=== PATIENT | male | born 1935 | race Caucasian/White ===

== ENCOUNTER 2016-09-19 20:08 | Inpatient (IN) | payer MEDICARE, BC ==
[~2016-09-19] VITALS: Ht 177.8 cm; Wt 70.6 kg
[~2016-09-19 20:08] MED LIST: BAYER CHEWABLE81 MG PO; COMBIVENT RESPIM4 GM INH; COREG6.25 MG PO; EC-NAPROSYN500 MG PO; LEVAQUIN500 MG PO; NORVASC10 MG PO; PRAVACHOL40 MG PO; PRINIVIL20 MG PO; SYMBICORT 80-10.2 GM INH; WELLBUTRIN SR150 MG PO
[2016-09-19 21:08] LABS: BASOPHILS 0.1 % (0-2); EOSINOPHILS 0.1 % (0-7); HEMATOCRIT 43.6 % (42.0-54.0); HEMOGLOBIN 14.2 g/dL (13.5-17.5); IMMATURE GRANULOCYTES 0.6 % (0-5); LYMPHOCYTES 2.6 % (15-50); MCH 31.3 pg (26.0-34.0); MCHC 32.6 g/dL (31.0-37.0); MEAN PLATELET VOLUME 11.5 fL (7.4-10.4); MONOCYTES 4.4 % (2-11); NEUTROPHILS 92.2 % (40-80); RBC 4.54 10x6/uL (4.20-6.10); RDW 13.8 % (11.5-14.5); WBC 14.9 10x3/uL (4.8-10.8)
[2016-09-19 21:09] LABS: PLATELET COUNT 168 10x3/uL (130-400)
[2016-09-19 21:23] LABS: ALBUMIN 3.3 g/dL (3.4-5.0); ANION GAP 11.9 mmol/L (8-16); BILIRUBIN - TOTAL 0.83 mg/dL (0.2-1.3); CARBON DIOXIDE 27.4 mmol/L (21.0-32.0); CREATININE - SERUM 1.3 mg/dL (0.6-1.3); POTASSIUM - SERUM 4.3 mmol/L (3.5-5.1); PROTEIN - SERUM 6.7 g/dL (6.4-8.2)
[2016-09-19 21:31] LABS: MAGNESIUM - SERUM 1.8 mg/dL (1.8-2.4); TROPONIN-I 0.049 ng/mL (0.000-0.060)
[2016-09-20] VITALS (7 sets, daily range): BP systolic 103–136; BP diastolic 53–75; Ht 177.8 cm; Wt 70.6 kg
[2016-09-20 14:44] LABS: CKMB 1.8 U/L (0.0-3.6); CREATINE KINASE 95 UL (21-232); TROPONIN-I 0.045 ng/mL (0.000-0.060)
[2016-09-20 19:25] LABS: CKMB 1.7 U/L (0.0-3.6); CREATINE KINASE 102 UL (21-232); TROPONIN-I 0.044 ng/mL (0.000-0.060)
[2016-09-21] VITALS: BP 114/62
[2016-09-21 02:50] LABS: BASOPHILS 0.1 % (0-2); EOSINOPHILS 0.8 % (0-7); HEMATOCRIT 37.4 % (42.0-54.0); HEMOGLOBIN 12.3 g/dL (13.5-17.5); IMMATURE GRANULOCYTES 0.4 % (0-5); LYMPHOCYTES 8.6 % (15-50); MCH 30.9 pg (26.0-34.0); MCHC 32.9 g/dL (31.0-37.0); MEAN PLATELET VOLUME 11.5 fL (7.4-10.4); MONOCYTES 4.6 % (2-11); NEUTROPHILS 85.5 % (40-80); RBC 3.98 10x6/uL (4.20-6.10); RDW 13.8 % (11.5-14.5); WBC 12.6 10x3/uL (4.8-10.8)
[2016-09-21 02:53] LABS: PLATELET COUNT 130 10x3/uL (130-400)
[2016-09-21 03:11] LABS: ALBUMIN 2.5 g/dL (3.4-5.0); ALKALINE PHOSPHATASE 81 U/L (46-116); ALT (SGPT) 10 U/L (10-68); CALC OSMOLALITY 275 mosm/kg (275-300); CALCIUM 8.3 mg/dL (8.5-10.1); CARBON DIOXIDE 27.5 mmol/L (21.0-32.0); CHLORIDE - SERUM 102 mmol/L (98-107); CREATINE KINASE 85 UL (21-232); CREATININE - SERUM 1.3 mg/dL (0.6-1.3); GLUCOSE 111 mg/dL (74-106); MAGNESIUM - SERUM 1.7 mg/dL (1.8-2.4); PHOSPHOROUS 2.5 mg/dL (2.5-4.9); POTASSIUM - SERUM 4.2 mmol/L (3.5-5.1); PROTEIN - SERUM 5.7 g/dL (6.4-8.2); SODIUM 135 mmol/L (136-145); TROPONIN-I 0.031 ng/mL (0.000-0.060); UREA NITROGEN 27 mg/dL (7-18); eGFR NON AFRICAN AMERICAN 56 mL/min (90-120)
[2016-09-21 04:00] VITALS: BP 120/56
[2016-09-21 08:04] VITALS: BP 113/60
[2016-09-21 12:00] VITALS: BP 125/59
[2016-09-21 16:00] VITALS: BP 130/67
[2016-09-21 20:00] VITALS: BP 127/60
[2016-09-22 02:00] VITALS: BP 139/67
[2016-09-22 04:00] VITALS: BP 138/69
[2016-09-22 06:30] LABS: HEMATOCRIT 36.8 % (42.0-54.0); HEMOGLOBIN 12.6 g/dL (13.5-17.5); LYMPHOCYTES 9.7 % (15-50); MCH 32.1 pg (26.0-34.0); MCHC 34.2 g/dL (31.0-37.0); MCV 93.9 fL (80.0-100.0); MEAN PLATELET VOLUME 11.7 fL (7.4-10.4); NEUTROPHILS 85.2 % (40-80); PLATELET COUNT 128 10x3/uL (130-400); RBC 3.92 10x6/uL (4.20-6.10); RDW 13.9 % (11.5-14.5)
[2016-09-22 06:41] LABS: ALBUMIN 2.5 g/dL (3.4-5.0); BILIRUBIN - TOTAL 0.48 mg/dL (0.2-1.3); CALCIUM 8.8 mg/dL (8.5-10.1); CARBON DIOXIDE 30.3 mmol/L (21.0-32.0); CREATININE - SERUM 1.2 mg/dL (0.6-1.3); MAGNESIUM - SERUM 1.9 mg/dL (1.8-2.4); PHOSPHOROUS 2.5 mg/dL (2.5-4.9); POTASSIUM - SERUM 4.3 mmol/L (3.5-5.1); PRE-ALBUMIN 12.8 mg/dL (18.0-35.7); PROTEIN - SERUM 6.2 g/dL (6.4-8.2)
[2016-09-22 08:19] VITALS: BP 118/52
[2016-09-22 11:31] VITALS: BP 116/62
[2016-09-22 15:12] VITALS: BP 114/62
[2016-09-23] VITALS: BP 120/64
[2016-09-23 04:00] VITALS: BP 145/70
[2016-09-23 05:47] LABS: BASOPHILS 0 % (0-2); EOSINOPHILS 0 % (0-7); HEMATOCRIT 37.4 % (42.0-54.0); HEMOGLOBIN 12.4 g/dL (13.5-17.5); IMMATURE GRANULOCYTES 0.3 % (0-5); LYMPHOCYTES 5.4 % (15-50); MCH 31.2 pg (26.0-34.0); MCHC 33.2 g/dL (31.0-37.0); MEAN PLATELET VOLUME 11.8 fL (7.4-10.4); NEUTROPHILS 90.3 % (40-80); RBC 3.98 10x6/uL (4.20-6.10); RDW 13.5 % (11.5-14.5); WBC 8.9 10x3/uL (4.8-10.8)
[2016-09-23 05:49] LABS: PLATELET COUNT 168 10x3/uL (130-400)
[2016-09-23 06:09] LABS: ALBUMIN 2.5 g/dL (3.4-5.0); ALKALINE PHOSPHATASE 83 U/L (46-116); CALC OSMOLALITY 278 mosm/kg (275-300); CALCIUM 9.1 mg/dL (8.5-10.1); CARBON DIOXIDE 28.4 mmol/L (21.0-32.0); CHLORIDE - SERUM 103 mmol/L (98-107); GLUCOSE 142 mg/dL (74-106); PROTEIN - SERUM 6.2 g/dL (6.4-8.2); SODIUM 137 mmol/L (136-145); UREA NITROGEN 20 mg/dL (7-18); eGFR NON AFRICAN AMERICAN 76 mL/min (90-120)
[2016-09-23 06:10] LABS: ALT (SGPT) 21 U/L (10-68); POTASSIUM - SERUM 5.2 mmol/L (3.5-5.1)
[2016-09-23 07:55] VITALS: BP 150/77
[2016-09-23] MEDS ORDERED: SINGULAIR10 MG PO (12:49)
[2016-09-23 12:50] VITALS: BP 133/63
[2016-09-23] MEDS ORDERED: BENZONATATE200 MG PO (12:50)
[2016-09-23] MEDS ORDERED: MUCINEX DM ER1 EAC1 PO (12:50)
[2016-09-23] MEDS ORDERED: VIBRAMYCIN 100100 MG PO (12:51)
[2016-09-23] MEDS ORDERED: PREDNISONE10 MG PO (12:51)
[2016-09-24 07:52] LABS: IMMUNOGLOBULIN E 587 IU/mL (0-100)
[2016-09-24 11:17] LABS: IMMUNOGLOBULIN A 223 mg/dL (61-437); IMMUNOGLOBULIN G 609 mg/dL (700-1600)
[2016-09-24 18:09] LABS: AEROBE ID Preliminary report (()); RESULT 1 Gram positive cocci (())
== END 2016-09-23 14:11 | disposition home or self-care (01) | DRG 190 ==
LOC: D.ER 20:08 → D.M2 21:47
PROVIDERS: Emergency Medicine; Internal Medicine Pulmonary Disease; ADMIT Emergency Medicine
DX: J44.0 Chronic obstructive pulmonary disease with (acute) lower respiratory infection (principal); J15.6 Pneumonia due to other Gram-negative bacteria; J13 Pneumonia due to Streptococcus pneumoniae; J98.11 Atelectasis; E44.0 Moderate protein-calorie malnutrition; F17.203 Nicotine dependence unspecified, with withdrawal; J70.0 Acute pulmonary manifestations due to radiation; J44.1 Chronic obstructive pulmonary disease with (acute) exacerbation; Z85.118 Personal history of other malignant neoplasm of bronchus and lung; I11.0 Hypertensive heart disease with heart failure; I50.9 Heart failure, unspecified; E78.5 Hyperlipidemia, unspecified; K21.9 Gastro-esophageal reflux disease without esophagitis; J30.9 Allergic rhinitis, unspecified; D64.9 Anemia, unspecified; D69.6 Thrombocytopenia, unspecified; E83.42 Hypomagnesemia

== ENCOUNTER 2016-09-30 20:37 | Inpatient (IN) | payer MEDICARE, BC ==
[~2016-09-30] VITALS: Ht 177.8 cm; Wt 81.4 kg
--- NOTE | ~2016-09-30 | OP ---
PATIENT NAME: GUNJAN DUVALL MEDICAL RECORD: [id number] :37 LOCATION:D.M2 D.2103 ADMISSION DATE:09/30/16 SURGEON: SADE MELARA MD OPERATION DATE: 09/30/16 DATE OF OPERATION: 10/04/2016 PROCEDURES: 1. Left heart catheterization. 2. Selective coronary angiography. 3. Left ventriculogram. INDICATION: Cardiomyopathy. PROCEDURE IN DETAIL: After informed consent was obtained and after detailed explanation of risks, benefits as well as alternative therapies, the patient elected to proceed with angiogram. The right femoral area was prepped and draped in normal sterile fashion. Right femoral artery was cannulated via modified Seldinger technique with placement of 5-Saudi Arabian sheath. All catheters exchanged through this sheath. FINDINGS: Left ventriculogram was performed in standard 30-degree FAUST view, reveals inferior hypokinesis, ejection fraction in the 30% range. SELECTIVE CORONARY ANGIOGRAPHY: 1. Left main is with no significant angiographic disease. 2. Left anterior descending has no significant stenosis. 3. The left circumflex with no significant stenosis. 4. Right coronary is chronically totally occluded, fills via left to right collaterals. OVERALL IMPRESSION: Total occlusion of the right coronary artery, that is chronic, resultant ischemic cardiomyopathy, ejection fraction 30%. Continue medical management of the cardiomyopathy and coronary artery disease. TRANSINT:[id number] Voice Confirmation ID: [id number] DOCUMENT ID: [id number] SADE MELARA MD CC: [id number] DICTATION DATE: 10/04/16 1030 SPINNING MACHINE TENDER: 10/04/16 1104 ADM IN [id number] [place] [address]
--- NOTE | ~2016-09-30 | EC ---
PATIENT:GUNJAN DUVALL DATE OF SERVICE: 10/02/16 SEX: M MEDICAL RECORD: [id number] DATE OF : 37 LOCATION:D.M2 D.210 AGE OF PATIENT: 81 ADMISSION DATE: 09/30/16 REFERRING PHYSICIAN: INTERPRETING PHYSICIAN: SADE MORGAN MD ECHOCARDIOGRAM REPORT ECHO CHARGES 4 ECHO COMPLETE CLINICAL DIAGNOSIS: A-FIB ECHOCARDIOGRAPHIC MEASUREMENTS (adult normal given) AC root (d.<3.7cm) 3.6 cm LV Septum d (<1.2 cm> 1.4 cm Valve Excursion 2.3 cm LV Septum (systole) 1.7 cm Left Atria (s.<4.0cm> 3.9 cm LVPW d(<1.2cm) 1.4 cm RV (d.<2.3cm) 1.8 cm LVPW (sytole) 1.8 cm LV diastole(<5.6CM) 5.6 cm MV E-F(>70mm/sec) cm LV systole 4.3 cm LVOT Diameter 2.0 cm MV exc.(>10mm) cm Est.ejection fraction (50-75%) % Pericardial Effusion N DOPPLER: LVIT cm/sec A cm/sec E 96.0 cm/sec LA cm/sec RVSP 42.0 mmHg LVOT 80.0 cm/sec AOP1/2T m/s Asc. Ao 113 cm/sec RVOT 98.0 cm/sec RA cm/sec PA 103 cm/sec AV Gradient Peak 5.1 mmHg AV Mean 2.3 mmHg AV Area 2.5 cm MV Gradient Peak 5.1 mmHg MV Mean 1.9 mmHg MV Area cm COMMENTS: Equal Opportunity Specialist: 1 JACQUI FREEBURN Erisa Attorney: 1 Dr. Morgan TAPE# PACS TWO-DIMENSIONAL ECHOCARDIOGRAM WITH DOPPLER 1. Left ventricular chamber size is dilated. Left ventricular systolic function is markedly reduced. Overall ejection fraction is 25-30 percent. 2. Left atrium is within normal limits at 3.9 centimeters. Right atrium and right ventricular chamber sizes are moderately dilated. 3. Valvular structures have normal structure and motion. 4. Doppler interrogation reveals mild to moderate mitral regurgitation, mild tricuspid regurgitation; no other valvular insufficiency or stenosis. Pulmonary artery systolic pressure is elevated estimated at 42 millimeters of mercury. ECHOCARDIOGRAM REPORT [id number] GUNJAN DUVALL 5. No evidence of pericardial effusion or left ventricular thrombus. SADE MORGAN MD CC: [id number] DICTATION DATE: 10/02/16 1500 TRADE SALES ASSISTANT: SHANTANU 10/03/16 1355 ADM IN [facility] [address] [id number]
--- NOTE | ~2016-09-30 | HEMODYNAMI ---
PATIENT:GUNJAN DUVALL MEDICAL RECORD: [id number] : 37 LOCATION:[facility] D.2103 ADMISSION DATE: 09/30/16 Generatedon:10/04/201610:34 Patient name: GUNJAN DUVALL Patient #: [id number] SSN: : 1935 Date of study: 10/04/2016 Page: Of Hemodynamic Procedure Report Patient Data Patient Demographics Procedure consent was obtained First Name: GUNJAN Gender: Male Last Name: ELOINA : 1935 Patient #: [id number] Age: 81 year(s) Race: Unknown Additional ID: [id number] Contact details [address]: [address] [place] [address] State: [place] City: [place] Zip code: [address] Admission Admission Data Admission Date: 09/30/2016 Admission Time: 22:44 Room #: D.2103 Procedure Procedure Types Cath Procedure Diagnostic Procedure LHC LHC w/Coronaries Miscellaneous Procedures Moderate Sedation up to 15 minutes Peripheral Cath Diagnostic Procedure Cath Peripheral Four Vessel Arteriogram Procedure Description Procedure Date Procedure Date: 10/04/2016 Procedure Start Time: 10:15 Procedure Staff Name Function Rich Morgan MD Performing Physician Cullen Barajas RT Scrub Delbert Dhillon RN Nurse Landon Shelton RT Monitor Procedure Data Cath Procedure Fluoroscopy Diagnostic fluoroscopy Total fluoroscopy Time: 4.4 time: 4.4 min min Diagnostic fluoroscopy Total fluoroscopy dose: dose: 245.73 mGy 245.73 mGy Contrast Material Contrast Material Type Amount (ml) Isovue 300 174 Entry Location Entry Primary Successful Side Size Upsize Upsize Entry Closure Succes sful Closure Location (Fr) 1 (Fr) 2 (Fr) Remarks Device Remarks Femoral Right 5 Fr Exoseal artery Diagnostic catheters Device Type Used For End Catheter Placement Cordis 5Fr Pigtail LV Angiography Catheter (MP) Cordis 5Fr JL 4.0 Left Coronary Catheter (MP) Angiography Cordis 5Fr 3DRC Catheter Right Coronary (MP) Angiography Cordis 4Fr JB3 catheter Cervical carotid (common) arteriography Procedure Medications Medication Administration Route Dosage Oxygen NC 2 l/min Heparin Flush Bag added to field 2 bags (1000units/500ml NS) 0.9% NaCl I.V. 100 ml/hr Lidocaine 2% added to field 20 Versed I.V. 1 mg Fentanyl I.V. 50 mcg Versed I.V. 1 mg Fentanyl I.V. 50 mcg Versed I.V. 0.5 mg Fentanyl I.V. 50 mcg Hemodynamics Rest Heart Rate: 70 (bpm) Snapshots Pre Cath Intra NCS Post Cath Vital Signs Time Heart Resp SPO2 NIBP (mmHg) Rhythm Pain Sedation Rate (ipm) (%) Status Level (bpm) 9:30:29 62 23 97 176/86(137) NSR 0 (11) 10(A) , No pain 9:34:53 71 24 98 170/92(128) NSR 0 (11) 10(A) , No pain 9:40:01 71 26 98 165/75(130) NSR 0 (11) 10(A) , No pain 9:45:02 59 19 98 154/83(131) NSR 0 (11) 10(A) , No pain 9:49:22 69 17 95 162/84(129) NSR 0 (11) 10(A) , No pain 9:53:46 70 19 97 158/81(124) NSR 0 (11) 10(A) , No pain 9:58:08 82 20 97 156/78(119) NSR 0 (11) 10(A) , No pain 10:02:31 60 16 96 133/66(118) NSR 0 (11) 10(A) , No pain 10:06:47 64 18 96 135/74(114) NSR 0 (11) 10(A) , No pain 10:11:05 61 17 94 138/71(106) NSR 0 (11) 10(A) , No pain 10:15:23 60 22 96 139/75(119) NSR 0 (11) 9(A) , No pain 10:19:43 62 15 96 137/72(115) NSR 0 (11) 9(A) , No pain 10:23:59 63 15 95 128/64(108) NSR 0 (11) 9(A) , No pain 10:28:13 63 16 96 136/74(107) NSR 0 (11) 10(A) , No pain 10:31:54 63 15 94 135/72(113) NSR 0 (11) 10(A) , No pain Medications Time Medication Route Dose Verified Delivered Reason Notes Effe ctiveness by by 9:27:12 Oxygen NC 2 Buffie Buffie Per l/min Jacquie Dhillon RN physician 9:27:22 Heparin Flush added 2 Buffie Buffie used for Bag to bags Jacquie RN Jacquie model artists' (1000units/500ml field NS) 9:27:33 0.9% NaCl I.V. 100 Buffie Buffie Per ml/hr Jacquie Dhillon RN physician 9:42:38 Lidocaine 2% added 20ml Buffie Rich for local to vial Jacquie Morgan MD anesthetic field 10:13:03 Versed I.V. 1 mg Buffie Buffie for Dhillon RN Jacquie RN sedation 10:13:09 Fentanyl I.V. 50 Buffie Buffie for mcg Dhillon RN Jacquie RN sedation 10:17:19 Versed I.V. 1 mg Buffie Buffie for Dhillon RN Jacquie RN sedation 10:17:24 Fentanyl I.V. 50 Buffie Buffie for mcg Dhillon RN Dhillon RN sedation 10:21:17 Versed I.V. 0.5 Buffie Buffie for mg Dhillon RN Dhillon RN sedation 10:21:21 Fentanyl I.V. 50 Buffie Buffie for mcg Dhillon RN Jacquie RN sedation Procedure Log Time Note 9:20:30 Landon Shelton RT (R) (CV) sent for patient. Start room use. 9:20:48 Time tracking: Regular hours 9:20:57 Plan of Care:Hemodynamics will remain stable., Cardiac rhythm will remain stable., Comfort level will be maintained., Respiratory function will remain adequate., Patient/ family verbilizes understanding of procedure., Procedure tolerated without complication., Recovers from procedure without complications.. 9:21:06 Patient received from PCU to CCL 3 Alert and oriented. Tansferred to table in Supine position. 9:21:09 Warm blankets applied, and erin hugger turned on for patient comfort. 9:21:09 Correct patient and procedure confirmed by team. 9:21:11 Signed procedure consent form obtained from patient. 9:21:12 ECG and BP/O2 sat monitors applied to patient. 9:21:13 Full Disclosure recording started 9:21:14 - 9:21:17 H&P Date Dictated: 10/04/2016 Within 30 days and on chart.. 9::17 Pre-procedure instructions explained to patient. ::18 Pre-op teaching completed and patient verbalized understanding. 9::19 Family in waiting room. 9::21 Patient NPO since Midnight. 9::23 Is the patient allergic to Iodine/contrast media? No. 9::25 Is patient on blood thinner?No 9::29 Patient diabetic? No. 9:21:31 - 9:21:31 ----Pre-sedation anethsthesia assessment.---- 9:21:35 Previous problem with sedation/anesthesia? No ? 9:21:36 Snore? Yes 9:21:37 Sleep apnea? No 9:21:39 Deviated septum? No 9:21:40 Opens mouth fully? Yes 9:21:41 Sticks out tongue? Yes 9:21:48 Airway obstruction? No ? 9:21:53 Dentures? Yes in 9:21:54 - 9:27:12 Oxygen 2 l/min NC was administered by Delbert Dhillon RN; Per physician; :27:22 Heparin Flush Bag (1000units/500ml NS) 2 bags added to field was administered by Buffie Dhillon RN; used for procedure; 9:27:33 0.9% NaCl 100 ml/hr I.V. was administered by Delbert Dhillon RN; Per physician; 9:29:13 Vital chart was started 9:31:47 Pre procedure: right dorsailis pedis pulse Doppler 9:31:50 Patient pain scale 0/10 no. 9:31:56 IV patent on arrival in right wrist with 0.9% NaCl at [facility]. 9:31:59 Sharps counted by scrub and verified by R.N. 9:32:00 Alarms reviewed by R. N. 9:32:04 Right groin area was prepped with chlora-prep and draped in sterile fashion 9:32:11 Use device set Femoral Dx 9:32:12 Acist Syringe opened to sterile field. 9:32:13 Bag Decanter opened to sterile field. 9:32:13 Medline Cath Pack opened to sterile field. 9:32:14 Terumo 5Fr Le Roy Sheath opened to sterile field. 9:32:15 St Shantanu 260cm J .035 wire opened to sterile field. 9:32:16 Acist Hand Control opened to sterile field. 9:32:16 Acist Manifold opened to sterile field. 9:32:17 Diagnostic Infinity 5Fr Multipack catheter opened to sterile field. 9:32:18 Tegaderm 4 x 4 opened to sterile field. 9:36:53 Baseline sample Acquired. 9:37:00 Rhythm: sinus rhythm 9:39:35 Zero performed for pressure channel P1 9:39:39 Zero performed for pressure channel P1 9:42:38 Lidocaine 2% 20ml vial added to field was administered by Rich Morgan MD; for local anesthetic; 10:11:52 Physician arrived 10:11:53 --------ALL STOP TIME OUT------ 10:12:14 Final Timeout: patient, procedure, and site verified with staff and physician. All members of the team are in agreement. 10:12:18 Right groin site verified by team. 10:12:22 Physical assessment completed. ASA score P 2 - A patient with mild systemic disease as per Rich Morgan MD. 10:12:26 Sedation plan: IV Moderate Sedation Versed, Fentanyl 10:13:03 Versed 1 mg I.V. was administered by Delbert Dhillon RN; for sedation; 10:13:09 Fentanyl 50 mcg I.V. was administered by Delbert Dhillon RN; for sedation; 10:15:22 Procedure started. 10:15:26 Local anesthetic to right femoral artery with Lidocaine 2% by Rich Morgan MD.INITIAL ACCESS ONLY 10:15:39 A 5 Fr sheath was inserted into the Right Femoral artery 10:17:19 Versed 1 mg I.V. was administered by Delbert Dhillon RN; for sedation; 10:17:24 Fentanyl 50 mcg I.V. was administered by Delbert Dhillon RN; for sedation; 10:17:42 A Cordis 5Fr Pigtail Catheter (MP) was advanced over the wire and used for LV Angiography. 10:17:48 LV angiography performed. 10:17:57 A Cordis 5Fr JL 4.0 Catheter (MP) was advanced over the wire and used for Left Coronary Angiography. 10:19:32 A Cordis 5Fr 3DRC Catheter (MP) was advanced over the wire and used for Right Coronary Angiography. 10:19:35 RCA angiography performed. 10:21:17 Versed 0.5 mg I.V. was administered by Delbert Dhillon RN; for sedation; 10:21:21 Fentanyl 50 mcg I.V. was administered by Delbert Dhillon RN; for sedation; 10:21:27 Rt and LT carotid angio performed 10:23:56 Terumo ANGLE 260cm glide wire opened to sterile field. 10:26:53 A Cordis 4Fr JB3 catheter was advanced over the wire and used for Cervical carotid (common) arteriography. 10:27:29 Sheath removed intact; hemostasis achieved with Exoseal to the Right Femoral artery. 10:27:38 Procedure ended.(Physican Out) 10:28:39 Cordis 5Fr Exoseal opened to sterile field. 10:28:46 Fluoroscopy time 04.40 minutes. 10::58 Fluoroscopy dose: 245.73 mGy 10::58 Flurop Dose total: 245.73 10:29:05 Contrast amount:Isovue 300 174ml. 10:29:07 Sharps counted by scrub and verified by R.N. 10:29:09 Insertion/operative site no bleeding no hematoma. 10:29:12 Post-op/insertion site Right Femoral artery dressed using a 4 x 4 and Tegaderm. 10:29:16 Post right femoral artery:stable 10:29:19 Post Procedure Pulses reassessed and unchanged 10:29:22 Post-procedure physical assessment completed. ASA score P 2 - A patient with mild systemic disease as per Rich Morgan MD. 10:29:24 Post procedure rhythm: unchanged. 10:29:25 Post procedure instruction explained to patient.Patient verbalizes understanding. 10:29:26 Procedure and supply charges have been captured, reviewed, submitted an d are correct. 10:29:59 Procedure type changed to Cath procedure, Diagnostic procedure, LHC, LH C w/Coronaries, Miscellaneous Procedures, Moderate Sedation up to 15 minutes, Peripheral Cath Diagnostic Procedure, Cath Peripheral, Four Vessel Arteriogram 10:33:18 Report given to Med II. 10:33:22 Patient transfered to Med II with Bed. 10:34:01 Vital chart was stopped Device Usage Item Name Manufacture Quantity Catalog Hospital Part Current Minimal Lo t# / Number Charge Number Stock Stock Serial# Code Acist Acist 1 [id number] [id number] 490340 485119 20 Syringe Medical Systems Inc Bag Microtek 1 2002S 755623 30999 629177 5 Decanter Medical Inc. Medline Cardinal 1 [id number] 928381 28538 008427 5 Cath Pack Health Terumo 5Fr Terumo 1 [id number] 799365 846974 896808 [address] St Shantanu 1 151255 640353 681778 929631 30 260cm J .035 wire Acist Hand Acist 1 46594 943876 389739 110575 5 Control Medical Systems Inc Acist Acist 1 82054 148215 119954 068080 5 Manifold Medical Systems Inc Diagnostic Cardinal 1 [id number] 147851 62509 120303 30 Infinity Health 5Fr Multipack catheter Tegaderm 4 3M 1 1626W 826249 207912 517912 5 x 4 Cordis 5Fr Cardinal 1 140622 5 Pigtail Health Catheter (MP) Cordis 5Fr Cardinal 1 256759 5 JL 4.0 Health Catheter (MP) Cordis 5Fr Cardinal 1 553355 5 3DRC Health Catheter (MP) Terumo Terumo 1 [id number] 897452 548023 116624 5 ANGLE 260cm glide wire Cordis 4Fr Cardinal 1 532-438 401089 964279 097132 5 JB3 Health catheter Cordis 5Fr Cardinal 1 EX500 815540 532264 855640 10 17 124354 [facility] Health Signature Audit Sparkill Stage Time Signature Unsigned Intra-Procedure 10/04/2016 Landon 10:33:54 AM Nikita RT (R) (CV) Signatures Monitor : Landon Signature : Nikita RT Date : Time : [id number] [place] [address]
--- NOTE | ~2016-09-30 | CN ---
PATIENT NAME:GUNJAN DUVALL MEDICAL RECORD: [id number] : 37 LOCATION:D. D.210 ADMIT DATE: 09/30/16 ACCOUNT: [id number] CONSULTING PHYSICIAN: SADE MELARA MD REFERRING PHYSICIAN: SCOTT RIGGS DO CARDIOLOGY CONSULT PROBLEM LIST: 1. Pneumonia. 2. Atrial fibrillation. 3. Valvular heart disease. 4. Chronic obstructive pulmonary disease. HISTORY OF PRESENT ILLNESS: This is a gentleman who was admitted with noncardiac reasons - pneumonia, shortness of breath, and was found to be in atrial fibrillation initially rapid ventricular response and started on a Cardizem drip. He is now in atrial flutter. Heart rate is in 70s. He is asymptomatic with this. He could not feel it even when he was tachycardic with it. He does not know of a history of tachyarrhythmias. He has been told in the past that he has aortic stenosis. This was a number of years ago. He has not had a reevaluation of his valvular heart disease since then. PHYSICAL EXAMINATION: HEAD, EYES, EARS, NOSE, AND THROAT: Benign. NECK: Supple. No jugular venous distention. Carotid upstroke plus two bilaterally without bruits. LUNGS: Overall clear to auscultation and percussion. HEART: Regular. Normal S1, normal S2. No S3, no S4. No murmurs. BONES, JOINTS, EXTREMITIES: No clubbing, cyanosis, or edema. OVERALL IMPRESSION: Atrial fibrillation, most likely reactionary to the chronic obstructive pulmonary disease and pneumonia. Will start him on sotalol 80 milligrams twice a day. Discontinue the Cardizem after the first dose of sotalol. Will plan for echocardiogram. Hopefully the sotalol and treatment of the pneumonia will restore sinus rhythm. SADE MELARA MD CC: [id number] DICTATION DATE: 10/01/16 1500 KNIT GOODS WASHER: SHANTANU 10/02/16 1416 ADM IN [facility] [address] [facility] [place] [address]
--- NOTE | ~2016-09-30 | OP ---
PATIENT NAME: GUNJAN DUVALL MEDICAL RECORD: [id number] :37 LOCATION:D.M2 D.2103 ADMISSION DATE:09/30/16 SURGEON: SADE MEALRA MD OPERATION DATE: 09/30/16 DATE OF OPERATION: 10/04/2016 PROCEDURES: Four-vessel carotid and vertebral angiography. INDICATION: Syncope and carotid vascular disease. PROCEDURE IN DETAIL: After informed consent was obtained and after detailed explanation of risks, benefits as well as alternative therapies, the patient elected to proceed with angiogram. The right femoral area had a preexisting sheath from coronary angiography, all catheters exchanged through this sheath. FINDINGS: There was a subselection of each subclavian as well as the left carotid. RIGHT SIDE: The common and external carotids are devoid of disease. The internal carotid has 60% stenosis after the bulb. The vertebral artery is widely patent. LEFT SYSTEM: The common and external carotids are widely patent. The internal carotid has an 80+ percent stenosis just after the bulb. The vertebral artery is devoid of disease. OVERALL IMPRESSION: Significant carotid disease, left greater than right. Evaluate for carotid endarterectomy in light of recurrent syncope. TRANSINT:[id number] Voice Confirmation ID: [id number] DOCUMENT ID: [id number] SADE MELARA MD CC: [id number] DICTATION DATE: 10/04/16 1031 SHEARING SHED WORKER: 10/04/16 1109 ADM [address] [place] [address]
[~2016-09-30 20:37] MED LIST changes: +BENZONATATE200 MG PO; +MUCINEX DM ER1 EAC1 PO; +PREDNISONE10 MG PO; +SINGULAIR10 MG PO; +VIBRAMYCIN 100100 MG PO
[2016-09-30 21:27] LABS: HEMATOCRIT 43.3 % (42.0-54.0); MCH 31.1 pg (26.0-34.0); MCHC 32.3 g/dL (31.0-37.0); MCV 96.2 fL (80.0-100.0); MEAN PLATELET VOLUME 11.1 fL (7.4-10.4); PLATELET COUNT 291 10x3/uL (130-400); RDW 14.5 % (11.5-14.5); WBC 23.3 10x3/uL (4.8-10.8)
[2016-09-30 21:43] LABS: ALBUMIN 3.1 g/dL (3.4-5.0); ANION GAP 13.2 mmol/L (8-16); BILIRUBIN - TOTAL 0.68 mg/dL (0.2-1.3); CALCIUM 8.6 mg/dL (8.5-10.1); CARBON DIOXIDE 28.2 mmol/L (21.0-32.0); CREATININE - SERUM 1.2 mg/dL (0.6-1.3); POTASSIUM - SERUM 4.4 mmol/L (3.5-5.1); PROTEIN - SERUM 6.6 g/dL (6.4-8.2)
[2016-09-30 22:02] LABS: MAGNESIUM - SERUM 1.8 mg/dL (1.8-2.4)
[2016-09-30 22:05] LABS: TROPONIN-I 0.184 ng/mL (0.000-0.060)
[2016-09-30 22:12] LABS: EOSINOPHILS 2 % (0-7); LYMPHOCYTES 6 % (15-50); MONOCYTES 5 % (2-11); NEUTROPHILS 87 % (40-80); PLATELET ESTIMATE NORMAL
--- NOTE | 2016-09-30 23:59 | NUR ---
REPORT RECIEVED FROM HERMELINDA BROWN FROM ER.
[2016-10-01] VITALS (7 sets, daily range): BP systolic 111–126; BP diastolic 56–70; Ht 177.8 cm; Wt 81.4 kg
--- NOTE | 2016-10-01 00:29 | NUR ---
PT ARRIVED VIA STRETCHER. WALKED TO BED WITHOUT DIFFICULTY. PT SITTING ON SIDE OF BED. VS DONE TEMP 98.1 BP 118/68 HR 148 TELEMETRY APPLIED. O2 97% 2L NC. RIGHT AC IV INFUSING MERREN 33ML/HR LEFT AC IV INFUSING DILTIZEM 10ML/HR. PT HAS NO S/S OF DISTRESS. STARTING ADMISSON ASSESSMENT AND ADMISSON HX NOW.
--- NOTE | 2016-10-01 00:49 | NUR ---
PT STATES THAT HE "HAS NOT TAKEN ANYTHING BUT VITAMINS SINCE HE RAN OUT OF THE MEDS HE WAS GIVEN AFTER D/C LAST WEEK"
--- NOTE | 2016-10-01 01:45 | NUR ---
PT RESTING IN BED. RESPIRATIONS EVEN AND UNLABORES. 2L O2 VIA NC. IV FLUIDS STILL INFUSING. BED LOW CALL LIGHT WITHIN REACH WILL CONTINUE TO MONITOR
--- NOTE | 2016-10-01 03:25 | NUR ---
PT ASLEEP. RESPIRATIONS ARE EVEN AND UNLABORED. AROUSED AT SOUND AND TOUCH. NO S/S OF DISTRESS WILL CONTINUE TO MONITOR
--- NOTE | 2016-10-01 08:42 | NUR ---
INTRODUCED MYSELF TO PT PRIMARY RN FOR TODAYS SHIFT. PT A&O LYING BACK IN BED RESTING QUIETLY. PT DENIES ANY CURRENT PAIN OR SOB BUT STATES "WHEN MY HR STARTS RACING I GET VERY SOB" PASSED MORNING MEDICATIONS. PT SWALLOWED WITHOUT ANY DIFFICULTIES. PT HAS A CARDIZEM DRIP INFUSING VIA R.AC PIV WITH DRSG CDI AND SWAB CAPS IN USE. PT ALSO HAS NS @KVO WITH INTERMITT. ANBX INFUSING VIA L.AC PIV WITH DRSG CDI AND SWAB CAPS IN USE. PT DENIES ANY HEART HISTORY OR IRREGULAR HEARTBEAT. PT CURRENTLY RUNNING 89 ATRIAL FLUTTER PER TELEMETRY MONITER. HEART SOUNDS IRREGULAR UPON AUSCULTATION. WILL MAKE SURE CARDIOLOGY IS CONSULTED FOR THIS NEW ONSET AND CPOC. SCDS OFFERED FOR DVT PROPHYLACTICS OFFERED HOWEVER PT DENIES NEED AND IS UP AMBULATORY WITH SAFE GAIT. CL IN REACH, BED IN LOWEST, SIDE RAILS X2. WILL CPOC.
--- NOTE | 2016-10-01 09:29 | NUR ---
CARDIZEM DRIP BAG EMPTIED. NEW BAG HUNG. AT BEDSIDE AND WAS UPDATED AND EVERYTHING. PT AND DENY ANY CURRENT QUESTIONS OR CONCERNS. CL IN REACH, BED IN LOWEST, SIDE RAILS X2. WILL CPOC.
[2016-10-01 11:15] LABS: BASOPHILS 0.1 % (0-2); EOSINOPHILS 0.3 % (0-7); HEMATOCRIT 37.8 % (42.0-54.0); HEMOGLOBIN 12.2 g/dL (13.5-17.5); IMMATURE GRANULOCYTES 0.3 % (0-5); LYMPHOCYTES 7.8 % (15-50); MCH 30.9 pg (26.0-34.0); MCHC 32.3 g/dL (31.0-37.0); MCV 95.7 fL (80.0-100.0); MEAN PLATELET VOLUME 10.8 fL (7.4-10.4); MONOCYTES 6.8 % (2-11); NEUTROPHILS 84.7 % (40-80); RBC 3.95 10x6/uL (4.20-6.10); RDW 14.5 % (11.5-14.5)
[2016-10-01 11:37] LABS: ANION GAP 10.3 mmol/L (8-16); CALCIUM 8.4 mg/dL (8.5-10.1); CREATININE - SERUM 1.2 mg/dL (0.6-1.3); POTASSIUM - SERUM 4.3 mmol/L (3.5-5.1)
[2016-10-01 11:38] LABS: PLATELET COUNT 232 10x3/uL (130-400); WBC 15.8 10x3/uL (4.8-10.8)
[2016-10-01] MEDS ORDERED: SYMBICORT 80-10.2 GM INH (14:15)
[2016-10-01] MEDS ORDERED: COMBIVENT RESPIM4 GM INH (14:15)
--- NOTE | 2016-10-01 16:08 | NUR ---
OFFERED PT SCDS FOR DVT PROPHYLACTICS BUT PT DENIES THE NEED AND IS AMBULATORY.
--- NOTE | 2016-10-01 17:01 | NUR ---
MARITNE NEW BAG OF CARDIZEM EVEN THOUGH ORDER HAS BEEN D/C R/T VERBAL ORDER PER TO CONTINUE DRIP UNTIL FIRST DOSE OF BETAPACE IS GIVEN AT 2100 TONIGHT. PT DENIES ANY CURRENT NEEDS AT THIS TIME. CL IN REACH, BED IN LOWEST, SIDE RAILS X2. WILL CPOC.
--- NOTE | 2016-10-01 19:32 | NUR ---
PT RESTING IN ROOM. DENIES ANY NEEDS. RESPIRATIONS EVEN AND UNLABORED. NO S/S OF DISTRESS. WILL CONTINUE TO MONITOR
--- NOTE | 2016-10-01 21:03 | NUR ---
DILTIAZEM D/C PER ORDER AFTER FIRST DOSE OF BETAPACE. PT DECLINES ANY CHANGES FIRST 5 MINS OFF OF DRIP. WILL CONTINUE TO MONITOR PT ON TELEMETRY. PT SAYING STARTING TO HAVE GENERALIZED PAIN AND WANTS A SLEEPING MED. DENIES ANY OTHER NEEDS. NO S/S OF DISTRESS. WILL CONTINUE TO MONITOR
--- NOTE | 2016-10-01 23:44 | NUR ---
PT RESTING. STILL C/O NOT GETTING SLEEP. ALSO C/O DRY MOUTH TOOTHBRUSH GIVEN AND WATER GIVEN. PT DENIES ANY OTHER NEEDS. NO S/S OF DISTRESS. WILL CONTINUE TO MONITOR
--- NOTE | 2016-10-01 23:56 | NUR ---
PTS LEFT ARM IV SWOLLEN RED AND TENDER. IV REMOVED WITH CATH INTACT. PT STILL HAS RIGHT ARM IV WITH NS KVO AND MERRN GOING OVER 30 MINS AND GENTAMICIN OVER 60 MINS. CHECKED COMPATIBLE. PT RESTING DENIES ANY NEEDS
--- NOTE | 2016-10-02 03:57 | NUR ---
PT C/O NOT BEING ABLE TO SLEEP, PT UP WALKING AROUND, HE IS FEELING RESTLESS. PT NOT LEAVING FLOOR JUST WALKING AROUND MED 2. WILL CONTINUE TO MONIOR PT
[2016-10-02 04:51] VITALS: BP 108/63
[2016-10-02 06:12] LABS: BASOPHILS 0.1 % (0-2); EOSINOPHILS 1.5 % (0-7); HEMATOCRIT 35.5 % (42.0-54.0); HEMOGLOBIN 11.7 g/dL (13.5-17.5); IMMATURE GRANULOCYTES 0.3 % (0-5); LYMPHOCYTES 6.4 % (15-50); MCH 31.5 pg (26.0-34.0); MCV 95.4 fL (80.0-100.0); MONOCYTES 7.1 % (2-11); NEUTROPHILS 84.6 % (40-80); PLATELET COUNT 232 10x3/uL (130-400); RBC 3.72 10x6/uL (4.20-6.10); RDW 14.5 % (11.5-14.5); WBC 14.4 10x3/uL (4.8-10.8)
--- NOTE | 2016-10-02 07:06 | NUR ---
PT NOW ASLEEP BUT I HAVE TO WAKE HIM UP TO GIVE HIM HIS ANTIBIOTIC. RESPIRATIONS EVEN AND UNLABORED. NO S/S OF DISTRESS. PT AWAKE. DENIES ANY NEEDS. WILL CONTINUE TO MONITOR
[2016-10-02 07:07] LABS: CALC OSMOLALITY 278 mosm/kg (275-300); CARBON DIOXIDE 26.3 mmol/L (21.0-32.0); CHLORIDE - SERUM 104 mmol/L (98-107); GLUCOSE 103 mg/dL (74-106); MAGNESIUM - SERUM 1.9 mg/dL (1.8-2.4); PHOSPHOROUS 2.7 mg/dL (2.5-4.9); POTASSIUM - SERUM 4.3 mmol/L (3.5-5.1); PRO BNP 7889 pg/mL (0-450); SODIUM 138 mmol/L (136-145); UREA NITROGEN 20 mg/dL (7-18); eGFR NON AFRICAN AMERICAN 76 mL/min (90-120)
--- NOTE | 2016-10-02 08:13 | NUR ---
PT LYING IN BED RESTING QUIETLY AND RESTING HR 140 ATRIAL FLUTTER. BP 112/75. JOE TRAN, CARDIAC BEHAVIORAL HEALTH DIRECTOR HERE AND GAVE VERBAL ORDER FOR ONE TIME DOSE OF DIG NOW. WILL PROVIDED AND CONTINUE TO MONITER CLOSELY.
[2016-10-02 09:07] VITALS: BP 112/75
[2016-10-02 12:08] VITALS: BP 110/66
--- NOTE | 2016-10-02 16:09 | NUR ---
PT JUST FINISHED SHOWER AND WAS RECONNECTED TO IV POLE. NS KVO WITH INTERMITT. ANBX. TELEMETRY BACK IN PLACE. PT RESTING QUIETLY AND WOULD LIKE TO TRY AND TAKE AN AFTERNOON NAP. CL IN REACH, BED IN LOWEST, SIDE RAILS X2. WILL CPOC.
[2016-10-02 16:32] VITALS: BP 107/53
[2016-10-02 23:32] VITALS: BP 112/49
--- NOTE | 2016-10-03 00:44 | NUR ---
RECEIVED IN BEDROOM. LAYING IN BED WATCHING TV. WANTS TO BE UNHOOKED FROM IV. IV GENT INFUSING AT THIS TIME. INSTRUCTED THAT WE CAN UNHOOK IV AFTER GENT IS FINISHED. IN GOOD SPIRITS. CALL LIGHT IN REACH.
[2016-10-03 06:05] LABS: BASOPHILS 0.2 % (0-2); EOSINOPHILS 2.6 % (0-7); HEMATOCRIT 34.8 % (42.0-54.0); HEMOGLOBIN 11.7 g/dL (13.5-17.5); IMMATURE GRANULOCYTES 0.3 % (0-5); LYMPHOCYTES 12.3 % (15-50); MCH 32.2 pg (26.0-34.0); MCHC 33.6 g/dL (31.0-37.0); MCV 95.9 fL (80.0-100.0); MEAN PLATELET VOLUME 11.7 fL (7.4-10.4); MONOCYTES 7.8 % (2-11); NEUTROPHILS 76.8 % (40-80); PLATELET COUNT 223 10x3/uL (130-400); RBC 3.63 10x6/uL (4.20-6.10); RDW 14.5 % (11.5-14.5)
[2016-10-03 06:07] LABS: WBC 9.1 10x3/uL (4.8-10.8)
[2016-10-03 06:24] VITALS: BP 112/56
[2016-10-03 06:26] LABS: ANION GAP 10.2 mmol/L (8-16); CALCIUM 8.2 mg/dL (8.5-10.1); CREATININE - SERUM 1.2 mg/dL (0.6-1.3); POTASSIUM - SERUM 4.2 mmol/L (3.5-5.1)
--- NOTE | 2016-10-03 08:00 | NUR ---
PT RESTING IN BED, STUDENT NURSE AT BEDSIDE COMPLETING ASSESSMENT. PT DENIES NEEDS.
[2016-10-03 08:42] VITALS: BP 114/54
--- NOTE | 2016-10-03 08:49 | NUR ---
RECHECKED BP. RIGHT ARM 109/43. PULSE 62. LEFT ARM 116/60. DR MELARA AT BEDSIDE DISCUSSED MEDS/BP. ADVISED TO HOLD CARDIZEM. OK TO GIVE BETAPACE AND LASIX. SPOUSE AT BEDSIDE. VERBALIZED UNDERSTANDING. DISCUSSED WITH DREW ACOSTA RN.
--- NOTE | 2016-10-03 11:01 | NUR ---
Patient Name: GUNJAN DUVALL Admission Status: ER Accout number: [id number] Admission Date: 09-30-2016 : 1935 Admission Diagnosis:UNSPECIFIED ATRIAL FLUTTER Attending: CHARLIE Current LOS: 3 Anticipated DC Date: 10-04-2016 Planned Disposition: Home Primary Insurance: MEDICARE A & B Discharge Planning Comments: * Is the patient Alert and Oriented? Yes 0 * How many steps to enter\exit or inside your home? NONE 0 * PCP DR. RANDALL 0 * Pharmacy [facility] [address] 0 * Preadmission Environment Home with Family 0 * ADLs Independent 0 * Equipment None 0 * Other Equipment NO MEDICAL EQUIPMENT PROVIDER PREFERENCE 0 * List name and contact numbers for known caregivers / representatives who currently or will assist patient after discharge: CLAIR DUVALL, SPOUSE, 0 * Community resources currently utilized None 0 * Please name any agencies selected above. NONE 0 * Can the patient safely return to the preadmission environment? Yes 0 * Has this patient been hospitalized within the prior 30 days at any hospital? Yes 0 CM MET WITH PT AND SPOUSE IN ROOM TO DISCUSS DISCHARGE PLANNING AND NEEDS. PT REPORTS LIVING AT HOME INDEPENDENTLY WITH SPOUSE. PT HAS NO MEDICAL EQUIPMENT AND NO OUTSIDE SERVICES ASSISTING IN THE HOME. CM DISCUSSED AVAILABILITY OF HOME HEALTH, REHAB SERVICES AND MEDICAL EQUIPMENT. PT DENIES DISCHARGE NEEDS, REPORTS HIS WILL PICK HIM UP FOR DISCHARGE HOME. IMPORTANT MESSAGE FROM MEDICARE PROVIDED AND EXPLAINED. PT DECLINED HOME HEALTH SPECIFICALLY REPORTING THAT HE THOUGHT THE PROBLEM IS HIS LUNGS BUT COME TO FIND OUT IT IS PROBABLY HIS HEART AND THEY ARE GOING TO CHECK TO SEE BY CATH TO SEE WHAT THE PROBLEM IS AND IF SOMETHING CAN BE DONE. PT STATES THAT IF HE FEELS HE NEEDS HOME HEALTH, HE WILL TELL THE DOCTOR. PT PLANS TO DISCHARGE HOME WITH SPOUSE, DENIES DISCHARGE NEEDS. CM TO FOLLOW AND ASSIST NEEDED. Wedger Machine: Stephen Shepherd
[2016-10-03 11:57] VITALS: BP 137/64
[2016-10-03 16:06] VITALS: BP 146/64
--- NOTE | 2016-10-03 19:19 | NUR ---
ALERT/AWAKE WATCHING TV. ASSESSMENTS COMPLETED. DENIES PAIN OR ANY NEEDS. ORIENTED TO CALL LIGHT.
[2016-10-03 20:00] VITALS: BP 148/65
--- NOTE | 2016-10-03 22:35 | NUR ---
REQUESTED DOOR CLOSED AND LIGHTS OFF TO SLEEP. NO OTHER NEEDS VOICED.
[2016-10-04] VITALS (8 sets, daily range): BP systolic 106–162; BP diastolic 50–81
--- NOTE | 2016-10-04 03:38 | NUR ---
PULLED IV OUT. RESITED IN LEFT FA 20G. TOOK A SHOWER. SOFTBALL CORE MOLDER CHANGED BEDDING.
[2016-10-04 04:45] LABS: BASOPHILS 0.2 % (0-2); EOSINOPHILS 2.4 % (0-7); HEMATOCRIT 37.4 % (42.0-54.0); HEMOGLOBIN 12.4 g/dL (13.5-17.5); IMMATURE GRANULOCYTES 0.5 % (0-5); MCH 31.1 pg (26.0-34.0); MCHC 33.2 g/dL (31.0-37.0); MEAN PLATELET VOLUME 11.1 fL (7.4-10.4); MONOCYTES 8.8 % (2-11); NEUTROPHILS 78.1 % (40-80); PLATELET COUNT 237 10x3/uL (130-400); RBC 3.99 10x6/uL (4.20-6.10); RDW 14.1 % (11.5-14.5); WBC 9.7 10x3/uL (4.8-10.8)
[2016-10-04 04:57] LABS: MCV 93.7 fL (80.0-100.0)
[2016-10-04 05:10] LABS: CALC OSMOLALITY 283 mosm/kg (275-300); CALCIUM 8.4 mg/dL (8.5-10.1); CARBON DIOXIDE 28.9 mmol/L (21.0-32.0); CHLORIDE - SERUM 105 mmol/L (98-107); GLUCOSE 102 mg/dL (74-106); MAGNESIUM - SERUM 2.1 mg/dL (1.8-2.4); PHOSPHOROUS 2.9 mg/dL (2.5-4.9); POTASSIUM - SERUM 4.3 mmol/L (3.5-5.1); SODIUM 140 mmol/L (136-145); UREA NITROGEN 27 mg/dL (7-18); eGFR NON AFRICAN AMERICAN 76 mL/min (90-120)
--- NOTE | 2016-10-04 08:25 | NUR ---
PT RESTING IN BED WITH EYES OPEN CALL LIGHT IN REACH NO PROBLEMS WILL MONITER
--- NOTE | 2016-10-04 10:51 | NUR ---
PT RETURNED FROM SHOE FOLDER VITALS STABLE CALL LIGHT IN REACH WILL MONITER
--- NOTE | 2016-10-04 12:32 | NUR ---
Nutrition follow-up: Diet: low sodium PO intkae 75-100% of meals +BM Wt: 168# RDN following.
--- NOTE | 2016-10-04 12:51 | NUR ---
PT RESTING IN BED WITH CALL LIGHT IN REACH WILL MONITER
--- NOTE | 2016-10-04 18:48 | NUR ---
PT RESTING IN BED WITH EYES OPEN CALL LIGHT IN REACH WILL MONITER NO PROBLEMS
--- NOTE | 2016-10-04 19:00 | NUR ---
REC REPORT ASSUMED CARE OF PATIENT. RESTING ON LEFT SIDE. OPENED EYES TO VERBAL STIMULI. DENIES PAIN OR ANY NEEDS. RT GROIN DRSG C/D/I. IV IN L FA INTACT SL. ON 02 AT 2L. RR EVEN U/L. BED IS LOW WITH SR UP X2. HAS CL IN REACH.
[2016-10-05] VITALS: BP 109/61
[2016-10-05 04:00] VITALS: BP 148/79
[2016-10-05 05:31] LABS: BASOPHILS 0.3 % (0-2); EOSINOPHILS 2.4 % (0-7); HEMATOCRIT 37.3 % (42.0-54.0); HEMOGLOBIN 12.2 g/dL (13.5-17.5); IMMATURE GRANULOCYTES 0.4 % (0-5); LYMPHOCYTES 11.6 % (15-50); MCH 30.8 pg (26.0-34.0); MCHC 32.7 g/dL (31.0-37.0); MCV 94.2 fL (80.0-100.0); MONOCYTES 11.2 % (2-11); NEUTROPHILS 74.1 % (40-80); PLATELET COUNT 214 10x3/uL (130-400); RBC 3.96 10x6/uL (4.20-6.10); RDW 14.3 % (11.5-14.5)
[2016-10-05 05:47] LABS: CALC OSMOLALITY 280 mosm/kg (275-300); CALCIUM 8.4 mg/dL (8.5-10.1); CARBON DIOXIDE 30.7 mmol/L (21.0-32.0); CHLORIDE - SERUM 105 mmol/L (98-107); GLUCOSE 103 mg/dL (74-106); POTASSIUM - SERUM 4.4 mmol/L (3.5-5.1); SODIUM 139 mmol/L (136-145); eGFR NON AFRICAN AMERICAN 76 mL/min (90-120)
[2016-10-05 05:57] LABS: UREA NITROGEN 20 mg/dL (7-18)
--- NOTE | 2016-10-05 06:42 | NUR ---
ADMIN SCHED MED. RT GROIN RACHELG C/D/I. DENIES ANY NEEDS OR DISCOMFORTS.
--- NOTE | 2016-10-05 07:10 | NUR ---
RECEIVED REPORT. ASSUMED CARE OF PATIENT. IV FLUIDS INFUSING AT KVO. RESP EVEN AND UNLABORED. RIGHT GROIN DRESSING CDI. PERIPHERAL PULSES PATENT. CALL LIGHT WITHIN REACH. DENIES NEEDS AT THIS TIME. NO DISTRESS.
[2016-10-05 08:10] VITALS: BP 126/73
[2016-10-05 11:27] VITALS: BP 136/61
--- NOTE | 2016-10-05 12:00 | NUR ---
SITTING IN BED. DENIES NEEDS. FRESH ICE WATER PROVIDED. FAMILY AT BEDSIDE. NO DISTRESS.
[2016-10-05 15:16] VITALS: BP 138/72
--- NOTE | 2016-10-05 18:37 | NUR ---
RESTING WELL IN BED WITH EYES OPEN. DENIES NEEDS. CALL LIGHT WITHIN REACH.
--- NOTE | 2016-10-05 19:20 | NUR ---
AWAKE ORIENTED X 4. DENIES PAIN OR ANY NEEDS. IV IN L FA INTACT/PATENT WITH NS AT KVO. TELEMETRY SHOWS 61 CAFIB. RT GROIN DRSG C/D/I. HAS CALL LIGHT AND BEDSIDE TABLE IN REACH.
[2016-10-05 20:00] VITALS: BP 130/64
--- NOTE | 2016-10-05 21:20 | NUR ---
ADMIN SCHED MEDS AND RESTORIL 15MG PO PER REQUEST FOR SLEEP. REQUESTED DOOR CLOSED AND LIGHTS OFF TO SLEEP.
[2016-10-06] VITALS: BP 95/62
[2016-10-06 04:00] VITALS: BP 139/64
--- NOTE | 2016-10-06 04:48 | NUR ---
RETURNING TO BED FROM BATHROOM. AMBULATING WITH STEADY GAIT. REQUESTED MORE ICE WATER.
[2016-10-06 06:14] LABS: BASOPHILS 0.4 % (0-2); EOSINOPHILS 2.9 % (0-7); HEMOGLOBIN 12.6 g/dL (13.5-17.5); IMMATURE GRANULOCYTES 0.3 % (0-5); LYMPHOCYTES 14.1 % (15-50); MCHC 33.2 g/dL (31.0-37.0); MCV 93.4 fL (80.0-100.0); MEAN PLATELET VOLUME 11.4 fL (7.4-10.4); NEUTROPHILS 72.3 % (40-80); PLATELET COUNT 199 10x3/uL (130-400); RBC 4.07 10x6/uL (4.20-6.10); RDW 13.9 % (11.5-14.5); WBC 10.1 10x3/uL (4.8-10.8)
[2016-10-06 06:49] LABS: ANION GAP 9.7 mmol/L (8-16); CALCIUM 8.5 mg/dL (8.5-10.1); CARBON DIOXIDE 28.5 mmol/L (21.0-32.0); CREATININE - SERUM 1.1 mg/dL (0.6-1.3); POTASSIUM - SERUM 4.2 mmol/L (3.5-5.1)
--- NOTE | 2016-10-06 07:45 | NUR ---
AM ROUNDING COMPLETED. INTRODUCED MYSELF TO PT PRIMARY RN FOR TODAYS SHIFT. PT A&O AND FAMILAR WITH ME. PT STATES HE HOPES TO BE DISCHARGED TODAY. PT DENIES ANY CURRENT PAIN OR NEEDS AND AWAITING BREAKFAST. CL IN REACH, BED IN LOWEST, SIDE RAILS X2. WILL CPOC.
[2016-10-06 07:47] VITALS: BP 141/66
[2016-10-06 11:41] VITALS: BP 117/56
[2016-10-06] MEDS ORDERED: BROVANA15 MCG/2 M INH (12:32)
[2016-10-06] MEDS ORDERED: NICODERM C1 PATCH .1 TRANSDERM (12:32)
[2016-10-06] MEDS ORDERED: LASIX20 MG PO (12:33)
[2016-10-06] MEDS ORDERED: RESTORIL15 MG PO (12:33)
[2016-10-06] MEDS ORDERED: PLAVIX75 MG PO (12:33)
[2016-10-06] MEDS ORDERED: ALTACE5 MG PO (12:33)
[2016-10-06] MEDS ORDERED: BETAPACE 80 MG80 MG PO (12:33)
[2016-10-06] MEDS ORDERED: SINGULAIR10 MG PO (12:34)
[2016-10-06] MEDS ORDERED: K-TAB10 MEQ PO (12:34)
--- NOTE | 2016-10-06 13:45 | NUR ---
AT BEDSIDE AND PT TO BE DISCHARGED AFTER LAST DOSE OF ANBX. STARTED ANBX AND ITS INFUSING VIA L.FA PIV. DISCHARGE PAPERS BEING WORKED UP. NO FURTHER NEEDS. WILL CPOC.
--- NOTE | 2016-10-06 15:27 | NUR ---
D/C PTS L.FA PIV WITH CATHETER TIP FULLY INTACT. PTS DISCHARGE PAPERS ALMOST FINISHED. RETURNED TELEMETRY TO [employer]. PT GETTING DRESSED AND DENIES ANY FURTHER NEEDS AT THIS TIME.
--- NOTE | 2016-10-06 16:35 | NUR ---
DISCHARGE TEACHING PROVIDED AND PAPERS SIGNED. PT AND VERBALIZED UNDERSTANDING AND DENY ANY QUESTIONS OR CONCERNS. PTS BELONGINGS COLLECTED AND HE IS WAITING ON NEBULIZER TO BE BROUGHT SO HE CAN LEAVE. NO FURTHER NEEDS AT THIS TIME.
--- NOTE | 2016-10-06 19:44 | NUR ---
LATE ENTRY 1530 CM RECEIVED REQUEST FOR NEBULIZER. PATIENT HAS NO PREFERRED PROVIDER. HE IS ANXIOUS TO BE DISCHARGED. TC TO [facility] BY [facility]. SPOKE WITH AGGIE. FAXED MD ORDER, FACE SHEET AND D/C SUMMARY W/ PULMONARY CONSULT FOR CLINICAL TO ASSIST W/ BILLING. WRITTEN PRESCRIPTION ALSO PROVIDED. NEBULIZER HAND DELIVERED TO THE PATIENT HE WAS BEING DISCHARGED. PATIENT DENIES ANY ADDITIONAL NEEDS.
== END 2016-10-06 17:01 | disposition home or self-care (01) | DRG 286 ==
LOC: D.ER 20:37 → D.M2 22:44
PROVIDERS: Emergency Medicine; Internal Medicine Interventional Cardiology; ADMIT Family Medicine
PROC: 4A023N7 Measurement of Cardiac Sampling and Pressure, Left Heart, Percutaneous Approach (ICD-10-PCS; 2016-10-04)
PROC: B3181ZZ Fluoroscopy of Bilateral Internal Carotid Arteries using Low Osmolar Contrast (ICD-10-PCS; 2016-10-04)
PROC: B3121ZZ Fluoroscopy of Left Subclavian Artery using Low Osmolar Contrast (ICD-10-PCS; 2016-10-04)
PROC: B31G1ZZ Fluoroscopy of Bilateral Vertebral Arteries using Low Osmolar Contrast (ICD-10-PCS; 2016-10-04)
PROC: B2111ZZ Fluoroscopy of Multiple Coronary Arteries using Low Osmolar Contrast (ICD-10-PCS; principal; 2016-10-04 09:00)
PROC: B2151ZZ Fluoroscopy of Left Heart using Low Osmolar Contrast (ICD-10-PCS; 2016-10-04 09:00)
DX: I25.10 Atherosclerotic heart disease of native coronary artery without angina pectoris (principal); I50.21 Acute systolic (congestive) heart failure; J13 Pneumonia due to Streptococcus pneumoniae; I48.92 Unspecified atrial flutter; F17.203 Nicotine dependence unspecified, with withdrawal; E44.0 Moderate protein-calorie malnutrition; J44.0 Chronic obstructive pulmonary disease with (acute) lower respiratory infection; J84.9 Interstitial pulmonary disease, unspecified; D80.3 Selective deficiency of immunoglobulin G [IgG] subclasses; E78.5 Hyperlipidemia, unspecified; I11.0 Hypertensive heart disease with heart failure; D64.9 Anemia, unspecified; K21.9 Gastro-esophageal reflux disease without esophagitis; Z68.23 Body mass index [BMI] 23.0-23.9, adult; I25.5 Ischemic cardiomyopathy; I65.23 Occlusion and stenosis of bilateral carotid arteries; G47.00 Insomnia, unspecified; I27.2 Other secondary pulmonary hypertension; I08.1 Rheumatic disorders of both mitral and tricuspid valves; I48.91 Unspecified atrial fibrillation; Z85.118 Personal history of other malignant neoplasm of bronchus and lung; Z87.01 Personal history of pneumonia (recurrent)

== ENCOUNTER → 2016-11-25 14:59 | Outpatient (CLI) | payer MEDICARE, BC ==
[2016-10-01 10:40] VITALS: BMI 23.8
[~2016-11-25 14:59] MED LIST changes: +ALTACE5 MG PO; +BETAPACE 80 MG80 MG PO; +BROVANA15 MCG/2 M INH; +K-TAB10 MEQ PO; +LASIX20 MG PO; +NICODERM C1 PATCH .1 TRANSDERM; +PLAVIX75 MG PO; +RESTORIL15 MG PO
== END | disposition home or self-care (01) ==
LOC: D.US 14:59
DX: I65.23 Occlusion and stenosis of bilateral carotid arteries (principal)

== ENCOUNTER 2016-12-10 06:46 | Outpatient (CLI) | payer MEDICARE, BC ==
--- NOTE | ~2016-12-10 | HEMODYNAMI ---
PATIENT:GUNJAN DUVALL MEDICAL RECORD: [id number] : 37 LOCATION:[address] ADMISSION DATE: 12/10/16 Generatedon:12/10/201617:03 Patient name: GUNJAN DUVALL Patient #: [id number] SSN: : 1935 Date of study: 12/10/2016 Page: Of Hemodynamic Procedure Report Patient Data Patient Demographics Procedure consent was obtained First Name: GUNJAN Gender: Male Last Name: ELOINA : 1935 Patient #: [id number] Age: 81 year(s) Race: Additional ID: [id number] Contact details Address: [address] [address] State: [place] City: [place] Zip code: [address] Past Medical History Allergies: No known allergies Admission Admission Data Admission Date: 12/10/2016 Admission Time: 6:46 Room #: 2107 Procedure Procedure Types Cath Procedure Diagnostic Procedure PPM/ICD Pocket Revision Miscellaneous Procedures Moderate Sedation up to 45 minutes Procedure Description Procedure Date Procedure Date: 12/10/2016 Procedure Start Time: 15:20 Procedure Staff Name Function Brenna Clarke MD Ordering physician Justin Urbano MD Performing Physician Alfonso Diaz RT Scrub Mejia Watt RN Nurse Nohelia Titus RT Monitor Dolores Madrigal RT Monitor Procedure Data Cath Procedure Fluoroscopy Diagnostic fluoroscopy Total fluoroscopy Time: 0 time: 0 min min Diagnostic fluoroscopy Total fluoroscopy dose: 0 dose: 0 mGy mGy Contrast Material Contrast Material Type Amount (ml) Isovue 300 0 Estimated blood loss: 5 ml Procedure Complications No complications Procedure Medications Medication Administration Route Dosage 0.9% NaCl I.V. 100 ml/hr Oxygen NC 2 l/min Lidocaine 2% added to field 20 Ancef (1Gm/50ml NS) I.V.P.B 1 g Ancef Irrigation Topical 1 g (1gm/500ml NS) Versed I.V. 2 mg Fentanyl I.V. 50 mcg Versed I.V. 1 mg Fentanyl I.V. 25 mcg Versed I.V. 1 mg unlisted medication S.C. 5000 units Fentanyl I.V. 25 mcg unlisted medication S.C. 5000 units Hemodynamics Rest Heart Rate: 69 (bpm) Snapshots Pre Cath Intra NCS Post Cath Vital Signs Time Heart Resp SPO2 NIBP (mmHg) Rhythm Pain Sedation Rate (ipm) (%) Status Level (bpm) 15:56:12 59 17 99 149/85(131) NSR 0 (11) 10(A) , No pain 16:00:35 59 21 95 131/70(96) NSR 0 (11) 10(A) , No pain 16:04:49 61 19 96 144/71(125) NSR 0 (11) 10(A) , No pain 16:09:07 62 16 99 149/74(125) NSR 0 (11) 10(A) , No pain 16:13:25 63 21 100 150/78(106) NSR 0 (11) 9(A) , No pain 16:17:41 71 22 98 148/85(125) NSR 0 (11) 9(A) , No pain 16:21:59 62 22 100 146/81(112) NSR 0 (11) 9(A) , No pain 16:26:19 61 21 100 138/70(110) NSR 0 (11) 9(A) , No pain 16:30:37 61 25 100 138/66(85) NSR 0 (11) 9(A) , No pain 16:34:55 62 32 100 139/70(111) NSR 0 (11) 9(A) , No pain 16:39:13 61 22 99 132/71(109) NSR 0 (11) 9(A) , No pain 16:43:27 61 23 99 139/75(119) NSR 0 (11) 9(A) , No pain 16:47:41 60 18 99 142/74(114) NSR 0 (11) 9(A) , No pain 16:52:01 64 22 98 132/64(104) NSR 0 (11) 9(A) , No pain 16:56:11 61 23 99 149/84(125) NSR 0 (11) 9(A) , No pain Medications Time Medication Route Dose Verified Delivered Reason Notes Effectiv eness by by 16:00:48 0.9% NaCl I.V. 100 Mejia Mejia Per ml/hr Alysa Watt physician RN RN 16:01:15 Oxygen NC 2 Mejia Mejia Per l/min Alysa Watt physician RN RN 16:01:38 Lidocaine added 20ml Mejia Mejia for local 2% to vial Lorigan Lorigan anesthetic field RN RN 16:02:47 Ancef I.V.P.B 1 g Mejia Mejia Per (1Gm/50ml Alysa Watt physician NS) RN RN 16:03:05 Ancef Topical 1 g Mejia Mejia used for Irrigation Lorigan Lorigan procedure (1gm/500ml RN RN NS) 16:09:18 Versed I.V. 2 mg Mejia Mejia for Lorigan Lorigan sedation RN RN 16:09:33 Fentanyl I.V. 50 Mejia Mejia for mcg Lorigan Lorigan sedation RN RN 16:14:43 Versed I.V. 1 mg Mejia Mejia for Lorigan Lorigan sedation RN RN 16:14:55 Fentanyl I.V. 25 Mejia Mejia for mcg Lorigan Lorigan sedation RN RN 16:19:22 Versed I.V. 1 mg Mejia Mejia for Lorigan Lorigan sedation RN RN 16:25:31 Thrombin S.C. 5000 Justin Justin for units Yolie galindo MD 16:30:23 Fentanyl I.V. 25 Mejia Mejia for mcg Lorigan Lorigan sedation RN RN 16:35:09 Thrombin S.C. 5000 Mejia Justin for units Alysa Urbano MD bleeding cardiopulmonary specialist Log Time Note 15:28:03 Nohelia Counts RT(R) sent for patient. Start room use. 15:28:04 Time tracking: Regular hours 15:28:07 Plan of Care:Hemodynamics will remain stable., Cardiac rhythm will remain stable., Comfort level will be maintained., Respiratory function will remain adequate., Patient/ family verbilizes understanding of procedure., Procedure tolerated without complication., Recovers from procedure without complications.. 15:54:54 Patient received from PCU to CCL 3 Alert and oriented. Tansferred to table in Supine position. 15:54:55 Warm blankets applied, and erin hugger turned on for patient comfort. 15:54:55 Correct patient and procedure confirmed by team. 15:54:56 Signed procedure consent form obtained from patient. 15:54:57 ECG and BP/O2 sat monitors applied to patient. 15:54:58 Vital chart was started 15:55:02 Rhythm: paced 15:55:03 Full Disclosure recording started 15:58:51 Pre-procedure instructions explained to patient. 15:58:52 Pre-op teaching completed and patient verbalized understanding. 15:58:54 Family in patients room. 15:58:56 Patient NPO since Midnight. 15:59:12 ----Pre-sedation anethsthesia assessment.---- 15:59:36 Previous problem with sedation/anesthesia? No ? 15:59:37 Snore? Yes 15:59:38 Sleep apnea? No 15:59:38 Deviated septum? No 15:59:39 Opens mouth fully? Yes 15:59:40 Sticks out tongue? Yes 15:59:43 Airway obstruction? Yes COPD 15:59:46 Dentures? Yes In 15:59:54 IV patent on arrival in right hand with 0.9% NaCl at KVO. 15:59:58 Lab results completed and on chart. 16:00:04 Left chest area was prepped with chlora-prep and draped in sterile fashion 16:00:05 Alarms reviewed by R. N. 16:00:05 Sharps counted by scrub and verified by R.N. 16:00:20 [email or web address] human resources hr representative Adama Calderon present for procedure. 16:00:48 0.9% NaCl 100 ml/hr I.V. was administered by Mejia Watt RN; Per physician; 16:01:15 Oxygen 2 l/min NC was administered by eMjia Watt RN; Per physician; 16:01:38 Lidocaine 2% 20ml vial added to field was administered by Mejia Watt RN; for local anesthetic; 16:02:47 Ancef (1Gm/50ml NS) 1 g I.V.P.B was administered by Mejia Watt RN; Per physician; 16:03:05 Ancef Irrigation (1gm/500ml NS) 1 g Topical was administered by Mejia Watt RN; used for procedure; 16:03:28 Pre sharps counted by scrub and verified by RN: Sutures: 0 Sponges: 5 Stick needles: 0 Skin needles: 2 Blade: 1 Cautery: 1 16:08:00 Final Timeout: patient, procedure, and site verified with staff and physician. All members of the team are in agreement. 16:08:02 Left chest site verified by team. 16:08:05 Physical assessment completed. ASA score P 2 - A patient with mild systemic disease as per Justin Urbano MD. 16:08:07 Sedation plan: IV Moderate Sedation Versed, Fentanyl 16:09:18 Versed 2 mg I.V. was administered by Mejia Watt RN; for sedation; 16:09:33 Fentanyl 50 mcg I.V. was administered by Mejia Watt RN; for sedation; 16:12:13 Baseline sample Acquired. 16:13:09 Doran removed from skin closure. 16:13:39 Lidocaine 1% to left subclavicular area by Justin Urbano MD. 16:14:43 Versed 1 mg I.V. was administered by Mejia Watt RN; for sedation; 16:14:55 Fentanyl 25 mcg I.V. was administered by Mejia Watt RN; for sedation; 16:16:04 Left subclavicular hematoma expressed. 16:19:22 Versed 1 mg I.V. was administered by Mejia Watt RN; for sedation; 16:20:10 Incision made to left subclavicular area. 16:20:11 Generator pocket made/opened. 16:21:02 Stapler Skin 35W Proximate Plus opened to sterile field. 16:24:31 Injecting thrombin into left subclavicular pocket. 16:25:31 Thrombin 5000 units S.C. was administered by Justin Urbano MD; for bleeding; 16:30:23 Fentanyl 25 mcg I.V. was administered by Mejia Watt RN; for sedation; 16:35:09 Thrombin 5000 units S.C. was administered by Justin Urbano MD; for bleeding; 16:42:39 Subcutaneous closure was completed with 3-0 vicryl plus. 16:48:12 skin closure completed with mele 16:58:14 Procedure ended.(Physican Out) 16:58:18 Fluoroscopy time 00.00 minutes. 16:58:20 Fluoroscopy dose: 0 mGy 16:58:20 Flurop Dose total: 0 16:58:24 Contrast amount:Isovue 300 0ml. 16:58:25 Sharps counted by scrub and verified by R.NChris 16:58:27 Insertion/operative site no bleeding no hematoma. 16:58:33 Post procedure rhythm: unchanged. 16:58:35 Estimated blood loss: 5 ml 16:58:37 Post procedure instruction explained to patient.Patient verbalizes understanding. 16:58:37 Patient needs reinforcement of post procedure teaching. 16:58:53 Procedure type changed to Cath procedure, Diagnostic procedure, PPM/ICD, Pocket Revision, Miscellaneous Procedures, Moderate Sedation up to 45 minutes 16:58:54 Procedure and supply charges have been captured, reviewed, submitted and are correct. 16:58:58 Procedure Complication : No complications 16:59:01 Vital chart was stopped 16:59:01 See physician's report for complete and final results. 16:59:07 Report given to Med II. 16:59:10 Patient transfered to Med II with Stretcher. 16:59:15 End room use (Document Last) Device Usage Item Name Manufacture Quantity Catalog Hospital Part Current Minimal Lot# / Number Charge Number Stock Stock Serial# Code Stapler Unknown 1 [id number] Skin 35W Proximate Plus Signature Audit [place] Stage Time Signature Unsigned Intra-Procedure 12/10/2016 Dolores Madrigal 5:03:28 PM RT(R) Signatures Monitor : Nohelia Signature : Tacho RT Date : Time : Monitor : Dolores Madrigal RT Signature : Date : Time : [id number] [place] [address]
--- NOTE | ~2016-12-10 | HEMODYNAMI ---
PATIENT:GUNJAN DUVALL MEDICAL RECORD: [id number] : 37 LOCATION:D.CAT ADMISSION DATE: 12/10/16 Generatedon:12/10/201611:33 Patient name: GUNJAN DUVALL Patient #: [id number] SSN: : 1935 Date of study: 12/10/2016 Page: Of Hemodynamic Procedure Report Patient Data Patient Demographics Procedure consent was obtained First Name: GUNJAN Gender: Male Last Name: ELOINA : 1935 Patient #: [id number] Age: 81 year(s) Race: Additional ID: [id number] Contact details Address: [address] [address] State: [place] City: [place] Zip code: [address] Past Medical History Allergies: No known allergies Admission Admission Data Admission Date: 12/10/2016 Admission Time: 6:46 Procedure Procedure Types Cath Procedure Diagnostic Procedure PPM/ICD Internal Cardiac Defib Dual Procedure Description Procedure Date Procedure Date: 12/10/2016 Procedure Start Time: 9:06 Procedure Staff Name Function Brenna Clarke MD Ordering physician Justin Urbano MD Performing Physician Alfonso Diaz RT Scrub Morris Scott RN Nurse Rojelio Vizcarra RT Monitor Procedure Data Cath Procedure Fluoroscopy Diagnostic fluoroscopy Total fluoroscopy Time: 6.1 time: 6.1 min min Diagnostic fluoroscopy Total fluoroscopy dose: dose: 86.8 mGy 86.8 mGy Contrast Material Contrast Material Type Amount (ml) Visipaque 270 10 Estimated blood loss: 10 ml Procedure Medications Medication Administration Route Dosage Ancef (1Gm/50ml NS) I.V.P.B 1 g Ancef Irrigation Topical 1 g (1gm/500ml NS) Versed I.V. 1 mg Fentanyl I.V. 50 mcg Versed I.V. 1 mg Fentanyl I.V. 50 mcg Hemodynamics Rest Heart Rate: 47 (bpm) Snapshots Pre Cath Intra NCS Post Cath Vital Signs Time Heart Resp SPO2 NIBP (mmHg) Rhythm Pain Sedation Rate (ipm) (%) Status Level (bpm) 9:32:05 52 16 99 175/78(93) NSR 0 (11) 10(A) , No pain 9:36:32 52 11 100 171/80(131) NSR 0 (11) 10(A) , No pain 9:41:47 58 21 100 162/81(137) NSR 0 (11) 10(A) , No pain 9:46:09 50 21 100 160/79(101) NSR 0 (11) 10(A) , No pain 9:50:25 45 19 100 133/108(112) NSR 0 (11) 10(A) , No pain 9:54:35 45 18 100 138/71(115) NSR 0 (11) 10(A) , No pain 9:58:55 45 15 100 130/60(113) NSR 0 (11) 10(A) , No pain 10:03:07 46 16 100 144/73(128) NSR 0 (11) 10(A) , No pain 10:07:27 63 16 100 146/69(125) NSR 0 (11) 9(A) , No pain 10:11:39 58 17 100 136/78(117) NSR 0 (11) 9(A) , No pain 10:16:10 45 18 99 124/64(98) NSR 0 (11) 9(A) , No pain 10:20:22 45 16 99 135/70(110) NSR 0 (11) 9(A) , No pain 10:24:38 48 17 99 127/68(100) NSR 0 (11) 9(A) , No pain 10:28:50 64 18 98 125/73(113) NSR 0 (11) 9(A) , No pain 10:33:02 52 18 99 125/70(109) NSR 0 (11) 9(A) , No pain 10:37:51 56 18 99 141/69(93) NSR 0 (11) 9(A) , No pain 10:42:07 64 19 99 147/77(131) NSR 0 (11) 9(A) , No pain 10:47:08 59 20 99 141/82(98) NSR 0 (11) 9(A) , No pain 10:51:30 61 22 99 157/86(108) NSR 0 (11) 9(A) , No pain 10:55:52 64 7 98 160/79(115) NSR 0 (11) 9(A) , No pain 11:00:12 59 7 97 166/86(112) NSR 0 (11) 9(A) , No pain 11:04:34 60 15 100 174/86(114) NSR 0 (11) 9(A) , No pain 11:09:01 60 15 99 172/87(163) NSR 0 (11) 9(A) , No pain 11:13:59 59 13 98 170/94(117) NSR 0 (11) 9(A) , No pain 11:18:18 61 8 99 164/102(114) NSR 0 (11) 9(A) , No pain 11:22:40 61 16 98 186/89(124) NSR 0 (11) 9(A) , No pain 11:27:08 61 12 98 184/95(122) NSR 0 (11) 9(A) , No pain 11:32:07 60 8 99 Measuring NSR 0 (11) 9(A) , No pain 11:32:48 60 6 99 185/95(119) NSR 0 (11) 9(A) , No pain Medications Time Medication Route Dose Verified Delivered Reason Notes Effective ness by by 9:31:22 Ancef I.V.P.B 1 g Justin Morris Per (1Gm/50ml Yolie Scott RN physician NS) 9:58:03 Ancef Topical 1 g Justin Justin Per Irrigation Yolie Urbano MD physician (1gm/500ml NS) 10:06:27 Versed I.V. 1 mg Justin Morris for Yolie Scott RN sedation 10:06:36 Fentanyl I.V. 50 Justin Morris for myra Scott RN sedation 10:10:15 Versed I.V. 1 mg Justin Morris for Yolie Scott RN sedation 10:10:18 Fentanyl I.V. 50 Justin Morris for myra Scott RN sedation Procedure Log Time Note 9:07:43 Diagnostic Cath Status : Elective 9:08:57 Morris Scott RN sent for patient. Start room use. 9:08:59 Time tracking: Regular hours 9:09:43 Plan of Care:Hemodynamics will remain stable., Cardiac rhythm will remain stable., Comfort level will be maintained., Respiratory function will remain adequate., Patient/ family verbilizes understanding of procedure., Procedure tolerated without complication., Recovers from procedure without complications.. 9:15:05 Patient received from Pre/Post Procedure Room to CCL 3 Alert and oriented. Tansferred to table in Supine position. 9:15:10 Warm blankets applied, and erin hugger turned on for patient comfort. 9:15:11 Correct patient and procedure confirmed by team. 9:15:15 Signed procedure consent form obtained from patient. 9:15:16 ECG and BP/O2 sat monitors applied to patient. 9:22:42 Vital chart was started 9:22:43 Baseline sample Acquired. 9:23:07 Rhythm: sinus bradycardia 9:23:09 Full Disclosure recording started 9:27:15 Vital chart was stopped 9:27:16 Vital chart was started 9:30:50 Vital chart was stopped 9:30:51 Vital chart was started 9:31:22 Ancef (1Gm/50ml NS) 1 g I.V.P.B was administered by Morris Scott RN; Per physician; 9:38:59 H&P Date Dictated: 12/05/2016 Within 30 days and on chart., H&P Addendum completed by physician on day of procedure. (MUST COMPLETE FOR ALL OUTPATIENTS). 9:39:01 Pre-procedure instructions explained to patient. 9:39:02 Pre-op teaching completed and patient verbalized understanding. 9:39:06 Family in waiting room. 9:39:09 Patient NPO since Midnight. 9:39:21 Patient allergic to No known allergies 9:39:26 Is the patient allergic to Iodine/contrast media? No. 9:39:35 Is patient on blood thinner?Yes 9:39:50 ON PLAVIX 9:39:58 Patient diabetic? No. 9:40:01 ----Pre-sedation anethsthesia assessment.---- 9:40:04 Previous problem with sedation/anesthesia? No ? 9:40:07 Snore? Yes 9:40:09 Sleep apnea? No 9:41:18 Deviated septum? No 9:41:19 Opens mouth fully? Yes 9:41:21 Sticks out tongue? Yes 9:41:26 Airway obstruction? Yes COPD 9:41:33 Dentures? Yes IN TIGHT 9:41:48 Patient pain scale 0/10 ?. 9:42:00 IV patent on arrival in right forearm with 0.9% NaCl at [facility]. 9:42:10 Left chest area was prepped with chlora-prep and draped in sterile fashion 9:42:14 Alarms reviewed by R. N. 9:42:14 Sharps counted by scrub and verified by R.N. 9:44:56 Use device set Pacemaker Set 9:47:02 2.0 Silk 685H opened to sterile field. 9:47:05 2-0 Vicryl Plus [id number] opened to sterile field. 9:47:09 Stapler Skin 35W Proximate Plus opened to sterile field. 9:47:10 Cautery Tip Information Security Risk Analyst opened to sterile field. 9:47:11 Cautery Pushbutton Pencil opened to sterile field. 9:47:56 2-0 Vicryl Plus [id number] opened to sterile field. 9:47:57 2.0 Silk 685H opened to sterile field. 9:51:57 Medtronic 5076-45 PPM Lead opened to sterile field. 9:51:58 Medtronic 6947M-55 ICD Lead opened to sterile field. 9:52:28 Medtronic livestock sales representative COLUMBA VELA present for procedure. 9:52:47 Pre sharps counted by scrub and verified by RN: Sutures: 4 Sponges: 5 Stick needles: 4 Skin needles: 2 Blade: 1 Cautery: 1 9:53:40 Micropuncture VSI 4FR kit opened to sterile field. 9:53:42 Micropuncture VSI 4FR kit opened to sterile field. 9:58:03 SUTURE PLACED IN ANCEF IRRIGATION 9:58:03 Ancef Irrigation (1gm/500ml NS) 1 g Topical was administered by Justin Urbano MD; Per physician; 10:01:38 Grounding pad site Right thigh. 10:01:40 Grounding pad site free from injury. 10:01:47 Physician arrived 10:01:48 --------ALL STOP TIME OUT------ 10:01:48 Final Timeout: patient, procedure, and site verified with staff and physician. All members of the team are in agreement. 10:01:53 Left chest site verified by team. 10:01:59 Physical assessment completed. ASA score P 2 - A patient with mild systemic disease as per Justin Urbano MD. 10:02:05 Sedation plan: IV Moderate Sedation Versed, Fentanyl 10:06:27 Versed 1 mg I.V. was administered by Morris Scott RN; for sedation; 10:06:36 Fentanyl 50 mcg I.V. was administered by Morris Scott RN; for sedation; 10:07:11 Lidocaine 2% to left subclavicular area by Justin Urbano MD. 10:10:15 Versed 1 mg I.V. was administered by Morris Scott RN; for sedation; 10:10:18 Fentanyl 50 mcg I.V. was administered by Morris Scott RN; for sedation; 10:11:27 Incision made to left subclavicular area. 10:13:39 Generator pocket made/opened. 10:19:20 IV Extension Set opened to sterile field. 10:20:30 INJECTION OF LEFT SUBCLAVIAN VEIN 10:21:04 Left subclavian vein accessed with 9Fr Safe Sheath. 10:24:05 Ventricular lead inserted and advanced. 10:24:13 Peel-a-way sheath was split and removed. 10:25:29 Left subclavian vein accessed with 7Fr Safe Sheath. 10:26:42 Atrial lead inserted and advanced. 10:27:32 Peel-a-way sheath was split and removed. 10:31:30 Ventricular lead positioned. 10:31:33 Ventricular lead tested. 10:31:56 Ventricular lead attachment was completed with 2-0 silk. 10:38:13 Ventricular lead positioned. 10:38:18 Atrial lead tested. 10:39:17 Atrial lead attachment was completed with 2-0 silk. 10:41:26 AICD was attached to lead(s) and inserted into pocket. 10:41:51 AICD was inserted subcutaneously to left chest. 10:43:46 Generator was sutured in place with 3-0 vicryl plus. 10:44:10 Subcutaneous closure was completed with 3-0 vicryl. 10:47:46 SKIN CLOSURE WITH ADELSO X 6 10:48:10 Procedure ended.(Physican Out) 10:49:47 Fluoroscopy time 06.10 minutes. 10:49:58 Fluoroscopy dose: 86.8 mGy 10:49:58 Flurop Dose total: 86.8 10:50:05 Contrast amount:Visipaque 270 10ml. 10:51:45 EYE PATCH PLACED WITH TEGADERM 10:52:09 4X4 PRESSURE DRESSING PLACED OVER SIGHT 10:57:05 Insertion/operative site no bleeding no hematoma. 10:57:17 Post left subclavian vein:stable 10:57:22 Post-procedure physical assessment completed. ASA score P 2 - A patient with mild systemic disease as per Justin Urbano MD. 10:58:01 Post procedure rhythm: paced 10:58:05 Estimated blood loss: 10 ml 10:58:08 Post procedure instruction explained to patient.Patient verbalizes understanding. 10:58:09 Patient needs reinforcement of post procedure teaching. 11:00:46 Procedure and supply charges have been captured, reviewed, submitted and are correct. 11:01:05 See physician's report for complete and final results. 11:02:47 PATIENT REMAINS ON TABLE, WAITING ON ROOM ASSIGNMENT 11:32:48 Report given to Med II. 11:32:52 Patient transfered to Med II with Bed. 11:32:53 End room use (Document Last) 11:33:23 Vital chart was stopped Device Usage Item Name Manufacture Quantity Catalog Hospital Part Current Minimal Lot# / Number Charge Number Stock Stock Serial# Code 2.0 Silk 685H Ethicon 2 685H [id number] 24809 [id number] 5 2-0 Vicryl Ethicon 2 [id number] 816361 094624 637907 5 Plus MJB812 Stapler Skin Unknown 1 PMW35 960300 127391 929964 5 35W Proximate Plus Cautery Tip Microtek 1 [id number] 312516 677340 783295 5 Information Security Risk Analyst [employer]. Cautery Microtek 1 B8685M 079226 04206 362016 5 Pushbutton [employer] Inc. Pencil Medtronic Medtronic 1 5076-45 819593 071724 5 5076-45 PPM Lead Medtronic Medtronic 1 6947M-55 [id number] 442753 5 6947M-55 ICD Lead Micropuncture VSI VASCULAR 2 7266V 218142 444695 5 VSI 4FR kit SOLUTIONS IV Extension Hospira 1 73888-34 363056 81014 049778 5 Set Signature Audit [place] Stage Time Signature Unsigned Intra-Procedure 12/10/2016 Rojelio Vizcarra 11:33:18 AM RT(R) (CV) Signatures Monitor : Rojelio Vizcarra RT Signature : Date : Time : [id number] [facility] [place] [address]
[2016-12-10] MEDS ORDERED: LIPITOR80 MG PO (07:05)
[2016-12-10 07:27] VITALS: BP 171/67; BMI 21.5
--- NOTE | 2016-12-10 07:31 | NUR ---
0730 IV SALINE LOCK WTIH 18 G STARTED TO LEFT AC X 1 STICK IV 20G TO RIGHT ACX1 STICK
[2016-12-10 07:51] LABS: CALCIUM 9.3 mg/dL (8.5-10.1); CARBON DIOXIDE 33.4 mmol/L (21.0-32.0); CREATININE - SERUM 1.2 mg/dL (0.6-1.3); POTASSIUM - SERUM 4.4 mmol/L (3.5-5.1)
[2016-12-10 07:52] LABS: INR 1.04 (0.85-1.17); PROTIME 13.4 SECONDS (11.6-15.0)
[2016-12-10 07:53] LABS: APTT 41.7 SECONDS (22.8-39.4)
--- NOTE | 2016-12-10 11:45 | NUR ---
RECEIVED PT TO ROOM 2106, VIA BED, PT C/O OF PAIN 5/10, PRESSURE DRESSING IN PLACE, SLING TO ARM. ORIENTED PT ROOM AND CALL LIGHT. PT DENIES ANY NEEDS AT THIS TIME. FAMILY AT BEDSIDE, WILL ASSESS AND START PLAN OF CARE.
[2016-12-10 12:57] VITALS: BP 107/63; BMI 21.5
--- NOTE | 2016-12-10 13:29 | NUR ---
CALLED THE MEDICAL APPARATUS MODEL MAKER AND NOTIFIED THEM THAT PT HAS DEVELOPED A HEMATOMA TO SITE, ASKED FOR SOMEONE TO COME LOOK AT IT. THEY STATED THAT SOMEONE WOULD BE BY TO LOOK AT IT. THEY ALSO STATED THAT THE PACEMAKER PLACED WAS A DIFFERENT TYPE OF PACEMAKER AND THAT I WOULD STICK OUT A LITTLE.
--- NOTE | 2016-12-10 13:31 | NUR ---
KEFLEX GIVEN AT THIS TIME. ALSO ADMINSITERED 7.5MG OF LORTAB FOR PAIN LEVEL OF 10/10. DRESSING SITE SATURATED, WILL CONTACT DR. PRO TO LET HIM KNOW, SO DRESSING CAN BE CHANGED. PT IN BED, DENIES ANY OTHER NEEDS AT THIS TIME. CALL LIGHT IN REACH, FAMILY AT [facility], NAD NOTED, WILL CONTINUE TO MONITOR.
--- NOTE | 2016-12-10 14:19 | NUR ---
ELKE RN FROM SLP HERE TO CHECK PT'S PACEMAKER SITE. HEMATOMA NOTED SIZE OF ORANGE. DR. MORTEZA SCHWARTZ, ORDERS FOR SAND BAG GIVEN AT THIS TIME. ELKE PLACE 4X4 DESSING TO SITE AND PLACED SAND BAG ON SITE. PT DENIES ANY NEEDS AT THIS TIME. CALL LIGHT IN REACH, NAD NOTED, WILL CONTINUE TO MONITOR.
--- NOTE | 2016-12-10 15:06 | NUR ---
PAGED DR. PRO, WAITING PARTS ROOM ASSOCIATE BACK.
--- NOTE | 2016-12-10 15:45 | NUR ---
PT TRANSFERED TO CARDIOLOGY NURSE VIA BED, NAD NOTED.
--- NOTE | 2016-12-10 17:25 | NUR ---
CALLED DR. PRO AND INFOMRED HIM THAT THERE WAS NO ADMISSION ORDER FOR PT. HE STATED THAT HE HAD PLACED ORDERED. BUT TO GO AHEAD AND PUT ADMISSION ORDER, AND TO MAKE PT INPATIENT.
[2016-12-10 17:30] VITALS: BP 112/54
--- NOTE | 2016-12-10 17:30 | NUR ---
PT TRANSFERED BACK TO ROOM 210, VIA BED, VITAL SIGNS STABLE, NO SIGNS OF HEMATOMA, PT DENIES ANY NEEDS AT THIS TIME. CALL LIGHT IN REACH, NAD NOTED, WILL CONTINUE TO MONITOR.
--- NOTE | 2016-12-10 19:30 | NUR ---
ALERT/AWAKE WATCHING TV. LEFT ARM IN A SLING. DRSG ON LEFT CHEST C/D/I FROM INCISION FOR PACEMAKER. RATES PAIN LEVEL AT 4 ON NUMBER SCALE, DESCRIBED BEING VERY SORE. IV IN R AC INTACT SL. DENIES ANY NEEDS. ORIENTED TO CL.
[2016-12-10 21:26] VITALS: BP 134/59
--- NOTE | 2016-12-10 21:40 | NUR ---
RETURNING TO BED FROM BATHROOM. ADMIN SCHED MEDS WITH SIPS OF WATER.
--- NOTE | 2016-12-10 23:50 | NUR ---
ADMIN DILAUDID 0.5 MG IV PER REQUEST FOR C/O LEFT CHEST INCISIONAL PAIN LEVEL 9 ON NUMBER SCALE, DESCRIBED SHARP THROBBING PAINS.
--- NOTE | 2016-12-11 07:17 | NUR ---
AM ROUNDS- PT IN BED, C/O OF HEADACHE, PAIN LEVEL OF 5/10. ASKING FOR TYLENOL. WILL CHECK TO SEE IF SHE CAN HAVE SOME TYLENOL AND WILL ADMINISTER IF DUE. PT DENIES ANY OTHER NEEDS AT THIS TIME. RESP EVEN AND UNLABORED. BED LOW AND WHEEL LOCKED, BEDSIDE RAILS X2, CALL LIGHT IN REACH, AT BEDSIDE, NAD NOTED, WILL CONTINUE TO MONITOR.
--- NOTE | 2016-12-11 07:17 | NUR ---
AM ROUNDS- PT UP TO SIDE OF BED, ASKED FOR A CUP OF COFFEE WITH CREAMER, WILL PROVIDED PT WITH COFFEE. PT DENIES ANY PAIN AT THIS TIME. PRESSURE DRESSING NOTED TO LT CHEST NO SIGN OF HEMATOMA. RESP EVEN AND UNLABORED, CALL LIGHT IN REACH, NAD NOTED, WILL CONTINUE TO MONITOR.
[2016-12-11 07:59] VITALS: BP 137/55
[2016-12-11] MEDS ORDERED: KEFLEX500 MG PO (08:04)
[2016-12-11] MEDS ORDERED: LORTAB PO (08:06)
--- NOTE | 2016-12-11 08:30 | NUR ---
AM MEDS GIVEN, PT UP TO SIDE OF BED, EATING BREAKFAST, DENIES ANY NEEDS AT THIS TIME. CALL LIGHT IN REACH, NAD NOTED, WILL CONTINUE TO MONITOR.
--- NOTE | 2016-12-11 11:55 | NUR ---
PROVIDED DISCHARGE TEACHING TO PT AND PT'S , BOTH VERBALIZED UNDERSTANDING REGARDING TEACHING. D/C RT AND LT AC IV, TIPS INTACT. PT WILL NOTIFY WHEN READY FOR WHEELCHAIR, NAD NTOED, WILL CONTINUE TO MONITOR.
--- NOTE | 2016-12-11 12:30 | NUR ---
PT LEFT UNIT VIA WHEELCHAIR, ACCOMPANIED BY , NAD NOTED.
== END 2016-12-11 12:30 | disposition home or self-care (01) ==
LOC: D.CATH 06:46 → D.M2 12:49 → D.CATH 17:33
PROVIDERS: Internal Medicine Cardiovascular Disease
DX: R00.1 Bradycardia, unspecified (principal); I44.0 Atrioventricular block, first degree; I42.9 Cardiomyopathy, unspecified; I25.110 Atherosclerotic heart disease of native coronary artery with unstable angina pectoris; I42.0 Dilated cardiomyopathy; I10 Essential (primary) hypertension; L76.32 Postprocedural hematoma of skin and subcutaneous tissue following other procedure; Y84.8 Other medical procedures as the cause of abnormal reaction of the patient, or of later complication, without mention of misadventure at the time of the procedure; Y92.239 Unspecified place in hospital as the place of occurrence of the external cause; I44.7 Left bundle-branch block, unspecified; R94.31 Abnormal electrocardiogram [ECG] [EKG]

== ENCOUNTER → 2016-12-24 09:17 | Outpatient (CLI) | payer MEDICARE, BC ==
[2016-12-10 12:57] VITALS: BMI 21.5
[~2016-12-24 09:17] MED LIST changes: +ATIVAN2 MG/ML IV; +HYDROCODON-ACE1 EAC7 PO; +ISOPTO ATROPINE5 ML SL; +KEFLEX500 MG PO; +LIPITOR80 MG PO; +LORTAB PO; +MORPHINE P30 MG/30 M IV; +TRANSDERM-SCO1 PATCH TRANSDERM
== END | disposition home or self-care (01) ==
LOC: D.RT 09:17
DX: I10 Essential (primary) hypertension (principal); I42.9 Cardiomyopathy, unspecified; I25.10 Atherosclerotic heart disease of native coronary artery without angina pectoris

== ENCOUNTER 2017-03-09 01:58 | Inpatient (IN) | payer MEDICARE, BC ==
[~2017-03-09] VITALS: Ht 177.8 cm; Wt 71.4 kg
[2017-03-09] VITALS (17 sets, daily range): BP systolic 71–100; BP diastolic 38–55; Ht 177.8 cm; Wt 71.4 kg
--- NOTE | ~2017-03-09 | EC ---
PATIENT:GUNJAN DUVALL DATE OF SERVICE: 03/09/17 SEX: M MEDICAL RECORD: [id number] DATE OF : 37 LOCATION:D.M2 D.211 AGE OF PATIENT: 82 ADMISSION DATE: 03/09/17 REFERRING PHYSICIAN: INTERPRETING PHYSICIAN: FLOR PRO MD ECHOCARDIOGRAM REPORT ECHO CHARGES 4 ECHO COMPLETE CLINICAL DIAGNOSIS: ELEVATED TROPONIN HX ICD ECHOCARDIOGRAPHIC MEASUREMENTS (adult normal given) AC root (d.<3.7cm) 4.1 cm LV Septum d (<1.2 cm> 1.6 cm Valve Excursion 2.2 cm LV Septum (systole) 1.7 cm Left Atria (s.<4.0cm> 3.7 cm LVPW d(<1.2cm) 1.3 cm RV (d.<2.3cm) 4.0 cm LVPW (sytole) 1.7 cm LV diastole(<5.6CM) 5.4 cm MV E-F(>70mm/sec) cm LV systole 3.9 cm LVOT Diameter 2.1 cm MV exc.(>10mm) 1.7 cm Est.ejection fraction (50-75%) % Pericardial Effusion N DOPPLER: LVIT cm/sec A 88.0 cm/sec E 53.0 cm/sec LA cm/sec RVSP 32 mmHg LVOT 101 cm/sec AOP1/2T m/s Asc. Ao 121 cm/sec RVOT cm/sec RA cm/sec PA cm/sec AV Gradient Peak 5.90 mmHg AV Mean 3.19 mmHg AV Area 3.4 cm MV Gradient Peak 3.17 mmHg MV Mean 0.97 mmHg MV Area cm COMMENTS: Track Laborer: 2 [place] Plate Mill Mill Hand: 4 Dr. Pro TAPE# PACS DATE OF SERVICE: 03/10/2017 PROCEDURE: Transthoracic echocardiogram. FINDINGS: 1. The patient's left ventricle has moderate concentric left ventricular hypertrophy, ejection fraction of 50%, asynchronous wall motion is noted. 2. The mitral valve is shown to have mild mitral regurgitation. 3. The aortic valve is sclerotic, but otherwise normal. 4. The tricuspid valve has mild tricuspid regurgitation with normal right ECHOCARDIOGRAM REPORT [id number] GUNJAN DUVALL ventricular systolic pressure. 5. The pericardium is normal. 6. The right atrium is moderately dilated. 7. The right ventricle is moderately dilated. 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 TRANSINT:[id number] Voice Confirmation ID: [id number] DOCUMENT ID: [id number] 03/18/2017 Edited to correct date of service, dmm. FLOR PRO MD at 1353 CC: [id number] DICTATION DATE: 03/11/17 1127 SCIENTIST IMMUNOLOGY: 03/11/17 1234 ADM IN [address] [id number] [place] [address]
--- NOTE | ~2017-03-09 | CN ---
PATIENT NAME:GUNJAN MARTINEZ MEDICAL RECORD: [id number] : 37 LOCATION:[facility].2306 ADMIT DATE: 03/09/17 ACCOUNT: [id number] CONSULTING PHYSICIAN: GERALDINE WALKER MD REFERRING PHYSICIAN: DENISE BURGESS MD DATE OF CONSULTATION: 03/09/2017 CONSULT REQUESTING PHYSICIAN: Denise Burgess MD REASON FOR CONSULTATION: Acute hypoxic hypercapnic respiratory failure. HISTORY OF PRESENT ILLNESS: Mr. Martinez is an 82-year-old gentleman who has a history of COPD and CA of the lung. The patient was admitted last night with nausea and vomiting, found out he has a small-bowel obstruction and ileus. This morning, the patient becomes hypotensive. He was also getting Dilaudid and morphine. The patient's ABG was done and that his CO2 was high and respiratory acidosis. Rapid response was called. The patient was also hypotensive with a blood pressure in 70s and he was given IV bolus. Now, he is a bit more awake and alert. REVIEW OF SYSTEMS: Mainly in the history of present illness. PAST MEDICAL HISTORY: 1. COPD. 2. Asthma. 3. Hypertension. 4. 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 5. Status post radiation therapy. 6. History of pneumonia. PAST SURGICAL HISTORY: He has a lung biopsy and a right leg repair. ALLERGIES: There are no known drug allergies. PRESENT MEDICATIONS: On Testin was reviewed. PERSONAL AND SOCIAL HISTORY: The patient is an ex-smoker. He is a nondrinker. FAMILY HISTORY: Significant for cardiovascular disease. PHYSICAL EXAMINATION: GENERAL: Now, the patient is lying comfortable in bed. He is not in acute distress, but he is very weak and lethargic. VITAL SIGNS: The blood pressure is 79-87/49, pulse is 62, respirations 22, temperature is 97.9, SpO2 is 98% on 35% BiPAP. HEENT: Conjunctivae pink, sclerae nonicteric. NECK: Supple, no JVD. CHEST: Excursion is minimal on both sides. No wheeze, no rales. HEART: Rhythm regular, normal sounds, no murmur. ABDOMEN: Soft, bowel sounds are muffled. There is no distention. No hepatosplenomegaly. RECTAL: Deferred. EXTREMITIES: No cyanosis, no clubbing, no pedal edema. CENTRAL NERVOUS SYSTEM: The patient is awake and alert. He follows commands. CONSULT REPORT [id number] GUNJAN MARTINEZ LABORATORY DATA: CBC: WBC 14.4, hemoglobin 15.4, hematocrit ____, and the platelet count is 145. Chemistry: Sodium 142, potassium 5.7, BUN is 39, creatinine 2.2, glucose 135, albumin 2.7. The liver enzymes within normal range. ABG: The pH is 7.30, pCO2 is 58.9, pO2 of 103, bicarbonate 29.1. CHEST RADIOGRAPH: There is no acute infiltrate. Pacemaker in place. IMAGING: CT scan of the abdomen showed distended small bowel consistent with obstruction. IMPRESSION: 1. Acute hypoxic hypercapnic respiratory failure. 2. Respiratory acidosis. 3. Non-small cell carcinoma of the lung. 4. Acute kidney injury, most likely secondary to dehydration. 5. History of severe chronic obstructive pulmonary disease without exacerbation. 6. Leukocytosis most likely secondary to intestinal obstruction. 7. Small bowel obstruction. 8. Hypotension secondary to dehydration. 9. Ex-smoker. RECOMMENDATIONS: 1. We will continue the Zosyn. 2. IV fluid resuscitation, pressor if required. Albuterol and ipratropium nebulizer, Brovana and budesonide nebulizer. 3. Supplemental oxygen. We will consider IV steroids if the blood pressure is refractive. The patient is going to transfer to the ICU. Follow up labs and chest radiographs. Discussed with the family and discussed with RN and RT. Dr. Burgess thank you for involving me in the care of Mr. Martinez. TRANSINT:[id number] Voice Confirmation ID: [id number] DOCUMENT ID: [id number] GERALDINE WALKER MD at 1406 CC: DENISE BURGESS MD [id number] DICTATION DATE: 03/09/17 1526 DRUM SANDER OFFBEARER: 03/09/17 2116 ADM IN [facility] [address] [place] [address]
--- NOTE | ~2017-03-09 | PN ---
PATIENT:GUNJAN DUVALL MEDICAL RECORD: [id number] LOCATION:[facility] D.230 ADMISSION DATE: 03/09/17 PROGRESS NOTE DATE OF SERVICE: 03/11/2017 PROGRESS NOTE ADDENDUM CHIEF COMPLAINT: None. The patient has been somewhat confused today. His abdomen is still firm and somewhat distended. He is hungry. I am going to start him on a clear liquid diet. He had 3 diarrheal stools today. Palpation of the abdomen aggravates. He appears to be diffusely tender with guarding. No peritonitis to percussion. Nothing alleviates. This is a progress note addendum. For the typed portion of the progress note, please see the chart. This would include the past medical and surgical history, current medications, allergies, social history as well as family history. REVIEW OF SYSTEMS: Positive for abdominal pain. Positive for diarrhea. No nausea, no vomiting, no fever, no chills. Review of systems is negative other than as is described above. PHYSICAL EXAMINATION: GENERAL: The patient does not appear acutely ill. He does appear acutely ill. He also appears chronically ill. VITAL SIGNS: Reviewed. HEENT: Ears; external ears appear normal. Eyes; extraocular movements are intact. NECK: Trachea is midline. CHEST: No intercostal retractions. PULMONARY: Nonlabored. No stridor. ABDOMEN: As described above. PSYCHIATRIC: Anxious affect. NEUROLOGIC: Answers some questions. He is somewhat confused. BACK: No thoracic kyphosis. LYMPHATIC: No lymphangitic streaking of the exposed extremities. IMPRESSION: Ileus versus partial small-bowel obstruction, resolving. PLAN: Clear liquid diet. Serial abdominal examinations. KUB in the morning. TRANSINT:[id number] Voice Confirmation ID: [id number] DOCUMENT ID: [id number] PROGRESS NOTE [id number] GUNJAN DUVALL ROBERT MD at 1327 CC: [id number] DICTATION DATE: 03/11/171924 WAREHOUSE OPERATIONS MANAGER: 03/12/17 1228 ADM IN [address] [id number] [place] [address]
--- NOTE | ~2017-03-09 | CN ---
PATIENT NAME:GUNJAN DUVALL MEDICAL RECORD: [id number] : 37 LOCATION:[facility].2306 ADMIT DATE: 03/09/17 ACCOUNT: [id number] CONSULTING PHYSICIAN: ART SHEIKH MD REFERRING PHYSICIAN: DENISE BURGESS MD DATE OF CONSULTATION: 03/12/2017 HISTORY OF PRESENT ILLNESS: This pleasant 82-year-old gentleman is presently in the ICU for a small-bowel obstruction. Consultation has been requested for medical management. The patient's past medical history is significant for recent admission to the hospital for a small-bowel obstruction. He was evaluated by general surgery and appropriate intervention was obtained. The patient also has some chronic renal insufficiency and is resting in the ICU after the last 2 days of appropriate treatment and trying to improve his pulmonary status. PAST MEDICAL HISTORY: Significant for non-small cell carcinoma of the right lower lobe with lung that was diagnosed earlier this year. He has a history of COPD, hypertension, asthma, recurrent pneumonia, and surgical repair of trauma to his right leg. PAST SURGICAL HISTORY: Includes lung biopsy, right leg surgery. ALLERGIES: He has no known drug allergies. MEDICATIONS: Listed on the MAR sheet. SOCIAL HISTORY: The patient does not drink alcohol. He has a past medical history of smoking, but does not smoke at the present time. REVIEW OF SYSTEMS: Unobtainable at the present time due to some confusion. PHYSICAL EXAMINATION: VITAL SIGNS: At the time of history and physical as below. GENERAL: He is a well-developed, well-nourished 82-year-old white male in no acute distress. HEENT: Pupils are equal, round and reactive to light. Extraocular movements are intact. Oral cavity and oropharynx shows tacky mucous membranes. NECK: No nuchal rigidity is noted. LUNGS: Coarse breath sounds heard throughout the lung rebollar. No wheezing is present. HEART: Regular rate and rhythm with a I/ systolic ejection murmur. ABDOMEN: Soft and distended. Guarding is present. No rebound tenderness. Absent bowel sounds. EXTREMITIES: Bruising is present in bilateral upper extremities. NEUROLOGIC: He is able to have sensation to move all 4 extremities. Chest x-ray does show pacemaker in place. He does have a past medical history of pacemaker. LABORATORY DATA: Reviewed. ASSESSMENT: 1. Chronic obstructive pulmonary disease. 2. Small-bowel obstruction. CONSULT REPORT [id number] STEARNS 3. Lung cancer. 4. Metabolic acidosis. 5. Acute renal insufficiency. 6. Leukocytosis. 7. Delirium. 8. Arrhythmia. PLAN: The patient will be monitored in the ICU. We will assist with IV fluids, electrolytes and follow appropriately. We will also consult cardiology. TRANSINT:[id number] Voice Confirmation ID: [id number] DOCUMENT ID: [id number] ART SHEIKH MD at 1533 CC: [id number] DICTATION DATE: 03/12/17 1158 MENTAL RETARDATION NURSE: 03/12/17 1256 ADM IN [facility] [address] [place] [address]
[~2017-03-09 01:58] MED LIST changes: -ATIVAN2 MG/ML IV; -HYDROCODON-ACE1 EAC7 PO; -ISOPTO ATROPINE5 ML SL; -MORPHINE P30 MG/30 M IV; -TRANSDERM-SCO1 PATCH TRANSDERM
[2017-03-09 02:42] LABS: BASOPHILS 0.1 % (0-2); EOSINOPHILS 0.1 % (0-7); HEMATOCRIT 46.3 % (42.0-54.0); HEMOGLOBIN 15.4 g/dL (13.5-17.5); IMMATURE GRANULOCYTES 0.3 % (0-5); LYMPHOCYTES 7.3 % (15-50); MCH 31.5 pg (26.0-34.0); MCHC 33.3 g/dL (31.0-37.0); MCV 94.7 fL (80.0-100.0); MEAN PLATELET VOLUME 11.9 fL (7.4-10.4); MONOCYTES 5.6 % (2-11); NEUTROPHILS 86.6 % (40-80); RBC 4.89 10x6/uL (4.20-6.10); RDW 12.9 % (11.5-14.5); WBC 14.4 10x3/uL (4.8-10.8)
[2017-03-09 02:48] LABS: PLATELET COUNT 145 10x3/uL (130-400)
[2017-03-09 03:03] LABS: ALBUMIN 3.6 g/dL (3.4-5.0); ANION GAP 13.8 mmol/L (8-16); BILIRUBIN - TOTAL 0.65 mg/dL (0.2-1.3); CALCIUM 9.8 mg/dL (8.5-10.1); CARBON DIOXIDE 31.5 mmol/L (21.0-32.0); CREATININE - SERUM 1.5 mg/dL (0.6-1.3); POTASSIUM - SERUM 4.3 mmol/L (3.5-5.1)
[2017-03-09 04:39] LABS: APPEARANCE HAZY (CLEAR); BILIRUBIN NEGATIVE (NEGATIVE); COLOR YELLOW (YELLOW); GLUCOSE NEGATIVE (NEGATIVE); KETONE SMALL mg/dL (NEGATIVE); NITRITE NEGATIVE (NEGATIVE); PROTEIN TRACE mg/dL (NEGATIVE); RED CELLS - URINE 0-5 /hpf (0-5); UROBILINOGEN NORMAL (NORMAL)
[2017-03-09 04:40] LABS: BACTERIA FEW /hpf (NONE SEEN); EPITHELIAL CELLS RARE /hpf (0-5); HYALINE CAST 0-5 /lpf (NONE SEEN); MUCUS >1+ /lpf (NONE SEEN)
[2017-03-09] MEDS ORDERED: SYMBICORT 80-10.2 GM INH (06:28)
[2017-03-09] MEDS ORDERED: HYDROCODON-ACE1 EAC7 PO (06:29)
[2017-03-09 13:11] LABS: BASOPHILS 0.1 % (0-2); EOSINOPHILS 0 % (0-7); HEMATOCRIT 46.7 % (42.0-54.0); HEMOGLOBIN 14.8 g/dL (13.5-17.5); IMMATURE GRANULOCYTES 0.2 % (0-5); LYMPHOCYTES 8.1 % (15-50); MCH 30.8 pg (26.0-34.0); MCHC 31.7 g/dL (31.0-37.0); MEAN PLATELET VOLUME 12.3 fL (7.4-10.4); MONOCYTES 5.9 % (2-11); NEUTROPHILS 85.7 % (40-80); PLATELET COUNT 128 10x3/uL (130-400); RBC 4.81 10x6/uL (4.20-6.10); RDW 13.2 % (11.5-14.5)
[2017-03-09 13:14] LABS: MCV 97.1 fL (80.0-100.0)
[2017-03-09 13:20] LABS: ALBUMIN 2.7 g/dL (3.4-5.0); BILIRUBIN - TOTAL 0.42 mg/dL (0.2-1.3); CALCIUM 8.3 mg/dL (8.5-10.1); CARBON DIOXIDE 32.5 mmol/L (21.0-32.0); PROTEIN - SERUM 5.5 g/dL (6.4-8.2)
[2017-03-09 13:21] LABS: ANION GAP 10.2 mmol/L (8-16); CREATININE - SERUM 2.2 mg/dL (0.6-1.3); POTASSIUM - SERUM 5.7 mmol/L (3.5-5.1)
[2017-03-09 17:56] LABS: BASOPHILS 0.2 % (0-2); EOSINOPHILS 0 % (0-7); HEMATOCRIT 43.2 % (42.0-54.0); HEMOGLOBIN 13.6 g/dL (13.5-17.5); IMMATURE GRANULOCYTES 0.2 % (0-5); LYMPHOCYTES 9.2 % (15-50); MCH 30.6 pg (26.0-34.0); MCHC 31.5 g/dL (31.0-37.0); MCV 97.1 fL (80.0-100.0); MEAN PLATELET VOLUME 11.9 fL (7.4-10.4); MONOCYTES 11.9 % (2-11); NEUTROPHILS 78.5 % (40-80); PLATELET COUNT 102 10x3/uL (130-400); RBC 4.45 10x6/uL (4.20-6.10); RDW 13.4 % (11.5-14.5); WBC 8.8 10x3/uL (4.8-10.8)
[2017-03-09 18:06] LABS: ALBUMIN 2.6 g/dL (3.4-5.0); ANION GAP 13.7 mmol/L (8-16); BILIRUBIN - TOTAL 0.38 mg/dL (0.2-1.3); CALCIUM 8.2 mg/dL (8.5-10.1); CARBON DIOXIDE 28.4 mmol/L (21.0-32.0); POTASSIUM - SERUM 5.1 mmol/L (3.5-5.1)
[2017-03-10] VITALS (93 sets, daily range): BP systolic 77–128; BP diastolic 35–79
[2017-03-10 05:14] LABS: BASOPHILS 0.1 % (0-2); EOSINOPHILS 0.1 % (0-7); HEMATOCRIT 40.8 % (42.0-54.0); HEMOGLOBIN 12.8 g/dL (13.5-17.5); LYMPHOCYTES 13.3 % (15-50); MCH 30.6 pg (26.0-34.0); MCHC 31.4 g/dL (31.0-37.0); MCV 97.6 fL (80.0-100.0); MEAN PLATELET VOLUME 12.1 fL (7.4-10.4); MONOCYTES 12.5 % (2-11); RBC 4.18 10x6/uL (4.20-6.10); RDW 13.6 % (11.5-14.5); WBC 7.5 10x3/uL (4.8-10.8)
[2017-03-10 05:24] LABS: PLATELET COUNT 127 10x3/uL (130-400)
[2017-03-10 05:30] LABS: INR 1.26 (0.85-1.17); PROTIME 15.3 SECONDS (11.6-15.0)
[2017-03-10 05:37] LABS: ANION GAP 12.9 mmol/L (8-16); CALCIUM 7.7 mg/dL (8.5-10.1); CARBON DIOXIDE 27.3 mmol/L (21.0-32.0); PHOSPHOROUS 6.2 mg/dL (2.5-4.9); POTASSIUM - SERUM 5.2 mmol/L (3.5-5.1)
[2017-03-10 05:54] LABS: CREATININE - SERUM 2.9 mg/dL (0.6-1.3)
[2017-03-11] VITALS (49 sets, daily range): BP systolic 85–151; BP diastolic 46–105
[2017-03-11 03:36] LABS: BASOPHILS 0.1 % (0-2); EOSINOPHILS 0 % (0-7); HEMATOCRIT 37.4 % (42.0-54.0); HEMOGLOBIN 11.9 g/dL (13.5-17.5); IMMATURE GRANULOCYTES 0.4 % (0-5); LYMPHOCYTES 8.2 % (15-50); MCHC 31.8 g/dL (31.0-37.0); MCV 97.4 fL (80.0-100.0); MONOCYTES 8.5 % (2-11); NEUTROPHILS 82.8 % (40-80); PLATELET COUNT 117 10x3/uL (130-400); RBC 3.84 10x6/uL (4.20-6.10)
[2017-03-11 03:39] LABS: WBC 10.7 10x3/uL (4.8-10.8)
[2017-03-11 03:46] LABS: INR 1.26 (0.85-1.17); PROTIME 15.4 SECONDS (11.6-15.0)
[2017-03-11 03:50] LABS: ALBUMIN 2.2 g/dL (3.4-5.0); ANION GAP 12.4 mmol/L (8-16); BILIRUBIN - DIRECT 0.13 mg/dL (0.00-0.30); BILIRUBIN - INDIRECT 0.23 mg/dL (0.00-1.00); BILIRUBIN - TOTAL 0.36 mg/dL (0.2-1.3); CALCIUM 8.1 mg/dL (8.5-10.1); CARBON DIOXIDE 28.1 mmol/L (21.0-32.0); CREATININE - SERUM 2.7 mg/dL (0.6-1.3); PHOSPHOROUS 5.6 mg/dL (2.5-4.9); POTASSIUM - SERUM 4.5 mmol/L (3.5-5.1); PROTEIN - SERUM 5.3 g/dL (6.4-8.2)
[2017-03-12] VITALS (24 sets, daily range): BP systolic 83–176; BP diastolic 25–99
[2017-03-12 04:26] LABS: BASOPHILS 0.1 % (0-2); EOSINOPHILS 0.2 % (0-7); HEMATOCRIT 36.8 % (42.0-54.0); HEMOGLOBIN 11.8 g/dL (13.5-17.5); IMMATURE GRANULOCYTES 0.4 % (0-5); LYMPHOCYTES 6.6 % (15-50); MCH 30.9 pg (26.0-34.0); MCHC 32.1 g/dL (31.0-37.0); MCV 96.3 fL (80.0-100.0); MEAN PLATELET VOLUME 12.2 fL (7.4-10.4); MONOCYTES 7.4 % (2-11); NEUTROPHILS 85.3 % (40-80); PLATELET COUNT 117 10x3/uL (130-400); RBC 3.82 10x6/uL (4.20-6.10); RDW 13.9 % (11.5-14.5); WBC 11.2 10x3/uL (4.8-10.8)
[2017-03-12 04:43] LABS: ANION GAP 12.9 mmol/L (8-16); CALCIUM 8.9 mg/dL (8.5-10.1); CARBON DIOXIDE 27.6 mmol/L (21.0-32.0); CREATININE - SERUM 2.1 mg/dL (0.6-1.3)
[2017-03-12 04:54] LABS: PHOSPHOROUS 2.7 mg/dL (2.5-4.9); POTASSIUM - SERUM 3.5 mmol/L (3.5-5.1)
[2017-03-13] VITALS (25 sets, daily range): BP systolic 109–176; BP diastolic 61–981
[2017-03-13 05:16] LABS: BASOPHILS 0.1 % (0-2); EOSINOPHILS 0.1 % (0-7); HEMATOCRIT 36.3 % (42.0-54.0); HEMOGLOBIN 11.8 g/dL (13.5-17.5); IMMATURE GRANULOCYTES 0.3 % (0-5); LYMPHOCYTES 4.4 % (15-50); MCH 30.9 pg (26.0-34.0); MCHC 32.5 g/dL (31.0-37.0); MEAN PLATELET VOLUME 11.5 fL (7.4-10.4); MONOCYTES 8.9 % (2-11); NEUTROPHILS 86.2 % (40-80); PLATELET COUNT 121 10x3/uL (130-400); RBC 3.82 10x6/uL (4.20-6.10); RDW 13.7 % (11.5-14.5)
[2017-03-13 05:20] LABS: WBC 14.1 10x3/uL (4.8-10.8)
[2017-03-13 05:29] LABS: ANION GAP 12.7 mmol/L (8-16); CALCIUM 8.4 mg/dL (8.5-10.1); CARBON DIOXIDE 26.7 mmol/L (21.0-32.0); PHOSPHOROUS 2.3 mg/dL (2.5-4.9); POTASSIUM - SERUM 3.4 mmol/L (3.5-5.1)
[2017-03-13 05:30] LABS: CREATININE - SERUM 1.5 mg/dL (0.6-1.3)
[2017-03-14] VITALS (21 sets, daily range): BP systolic 130–155; BP diastolic 71–104
[2017-03-14 04:26] LABS: BASOPHILS 0.1 % (0-2); EOSINOPHILS 0.6 % (0-7); HEMOGLOBIN 10.9 g/dL (13.5-17.5); IMMATURE GRANULOCYTES 0.4 % (0-5); LYMPHOCYTES 8.9 % (15-50); MCH 30.4 pg (26.0-34.0); MCHC 32.1 g/dL (31.0-37.0); MEAN PLATELET VOLUME 12.1 fL (7.4-10.4); MONOCYTES 12.8 % (2-11); NEUTROPHILS 77.2 % (40-80); PLATELET COUNT 108 10x3/uL (130-400); RBC 3.58 10x6/uL (4.20-6.10); RDW 13.7 % (11.5-14.5); WBC 10.4 10x3/uL (4.8-10.8)
[2017-03-14 04:40] LABS: CALCIUM 8.5 mg/dL (8.5-10.1); CARBON DIOXIDE 30.5 mmol/L (21.0-32.0); CREATININE - SERUM 1.3 mg/dL (0.6-1.3); POTASSIUM - SERUM 3.5 mmol/L (3.5-5.1)
[2017-03-14 04:51] LABS: PHOSPHOROUS 1.7 mg/dL (2.5-4.9)
[2017-03-15] VITALS (8 sets, daily range): BP systolic 96–155; BP diastolic 61–105
[2017-03-15 04:13] LABS: BASOPHILS 0.1 % (0-2); HEMATOCRIT 35.1 % (42.0-54.0); HEMOGLOBIN 11.2 g/dL (13.5-17.5); IMMATURE GRANULOCYTES 0.6 % (0-5); MCH 30.9 pg (26.0-34.0); MCHC 31.9 g/dL (31.0-37.0); MEAN PLATELET VOLUME 11.8 fL (7.4-10.4); NEUTROPHILS 73.3 % (40-80); PLATELET COUNT 118 10x3/uL (130-400); RBC 3.62 10x6/uL (4.20-6.10); RDW 13.9 % (11.5-14.5); WBC 8.3 10x3/uL (4.8-10.8)
[2017-03-15 04:43] LABS: ALBUMIN 2.2 g/dL (3.4-5.0); ANION GAP 7.3 mmol/L (8-16); APTT 37.1 SECONDS (22.8-39.4); BILIRUBIN - TOTAL 0.42 mg/dL (0.2-1.3); CALCIUM 8.5 mg/dL (8.5-10.1); CARBON DIOXIDE 31.1 mmol/L (21.0-32.0); CREATININE - SERUM 1.3 mg/dL (0.6-1.3); INR 1.24 (0.85-1.17); PHOSPHOROUS 1.8 mg/dL (2.5-4.9); POTASSIUM - SERUM 3.4 mmol/L (3.5-5.1); PROTEIN - SERUM 5.2 g/dL (6.4-8.2); PROTIME 15.2 SECONDS (11.6-15.0)
[2017-03-15 04:58] LABS: D-DIMER-QUANTITATIVE 7.32 ug/mLFEU (0.20-0.54)
[2017-03-16 05:10] LABS: BASOPHILS 0.1 % (0-2); HEMATOCRIT 32.9 % (42.0-54.0); HEMOGLOBIN 10.7 g/dL (13.5-17.5); IMMATURE GRANULOCYTES 0.8 % (0-5); LYMPHOCYTES 12.6 % (15-50); MCH 31.1 pg (26.0-34.0); MCHC 32.5 g/dL (31.0-37.0); MCV 95.6 fL (80.0-100.0); MEAN PLATELET VOLUME 11.7 fL (7.4-10.4); MONOCYTES 8.9 % (2-11); NEUTROPHILS 73.6 % (40-80); RBC 3.44 10x6/uL (4.20-6.10); RDW 13.9 % (11.5-14.5)
[2017-03-16 05:14] LABS: PLATELET COUNT 146 10x3/uL (130-400)
[2017-03-16 05:31] LABS: ALBUMIN 2.3 g/dL (3.4-5.0); ANION GAP 9.9 mmol/L (8-16); BILIRUBIN - TOTAL 0.4 mg/dL (0.2-1.3); CALCIUM 8.3 mg/dL (8.5-10.1); CARBON DIOXIDE 28.5 mmol/L (21.0-32.0); CREATININE - SERUM 1.2 mg/dL (0.6-1.3); POTASSIUM - SERUM 3.4 mmol/L (3.5-5.1); PROTEIN - SERUM 5.1 g/dL (6.4-8.2)
[2017-03-16 11:35] VITALS: BP 115/70
[2017-03-16 20:50] VITALS: BP 145/80
[2017-03-17 01:45] VITALS: BP 141/66
[2017-03-17 06:45] LABS: BASOPHILS 0.1 % (0-2); EOSINOPHILS 1.3 % (0-7); HEMATOCRIT 32.6 % (42.0-54.0); HEMOGLOBIN 10.4 g/dL (13.5-17.5); IMMATURE GRANULOCYTES 0.5 % (0-5); LYMPHOCYTES 6.1 % (15-50); MCH 31.1 pg (26.0-34.0); MCHC 31.9 g/dL (31.0-37.0); MEAN PLATELET VOLUME 11.6 fL (7.4-10.4); MONOCYTES 7.2 % (2-11); NEUTROPHILS 84.8 % (40-80); RBC 3.34 10x6/uL (4.20-6.10); RDW 14.1 % (11.5-14.5)
[2017-03-17 06:46] LABS: MCV 97.6 fL (80.0-100.0); PLATELET COUNT 193 10x3/uL (130-400); WBC 11.8 10x3/uL (4.8-10.8)
[2017-03-17 07:01] VITALS: BP 127/59
[2017-03-17 07:02] LABS: ANION GAP 9.5 mmol/L (8-16); CALCIUM 8.5 mg/dL (8.5-10.1); CARBON DIOXIDE 29.2 mmol/L (21.0-32.0); CREATININE - SERUM 1.1 mg/dL (0.6-1.3); MAGNESIUM - SERUM 2.1 mg/dL (1.8-2.4); POTASSIUM - SERUM 3.7 mmol/L (3.5-5.1)
[2017-03-17 07:03] LABS: PHOSPHOROUS 2.7 mg/dL (2.5-4.9)
[2017-03-17 09:25] VITALS: BP 149/62
[2017-03-17 12:43] VITALS: BP 131/64
[2017-03-17 17:32] VITALS: BP 133/66
[2017-03-17 20:00] VITALS: BP 144/70
[2017-03-18 00:30] VITALS: BP 131/70
[2017-03-18 04:30] VITALS: BP 131/62
[2017-03-18 06:46] LABS: CALCIUM 8.3 mg/dL (8.5-10.1); CARBON DIOXIDE 31.5 mmol/L (21.0-32.0); CREATININE - SERUM 1.3 mg/dL (0.6-1.3); MAGNESIUM - SERUM 2.4 mg/dL (1.8-2.4)
[2017-03-18 06:48] LABS: PHOSPHOROUS 4.9 mg/dL (2.5-4.9); POTASSIUM - SERUM 4.5 mmol/L (3.5-5.1)
[2017-03-18 08:41] VITALS: BP 133/58
[2017-03-18 11:43] VITALS: BP 132/56
[2017-03-18 22:33] VITALS: BP 144/72
[2017-03-19 04:23] LABS: HEMATOCRIT 34.4 % (42.0-54.0); HEMOGLOBIN 10.6 g/dL (13.5-17.5); MCH 30.7 pg (26.0-34.0); MCHC 30.8 g/dL (31.0-37.0); MEAN PLATELET VOLUME 11.4 fL (7.4-10.4); RBC 3.45 10x6/uL (4.20-6.10); RDW 14.6 % (11.5-14.5)
[2017-03-19 04:24] LABS: MCV 99.7 fL (80.0-100.0); PLATELET COUNT 267 10x3/uL (130-400); WBC 17.8 10x3/uL (4.8-10.8)
[2017-03-19 04:40] VITALS: BP 183/78
[2017-03-19 04:41] LABS: ALBUMIN 2.9 g/dL (3.4-5.0); ANION GAP 10.1 mmol/L (8-16); BILIRUBIN - TOTAL 0.47 mg/dL (0.2-1.3); CALCIUM 8.7 mg/dL (8.5-10.1); CARBON DIOXIDE 31.8 mmol/L (21.0-32.0); CREATININE - SERUM 1.5 mg/dL (0.6-1.3); POTASSIUM - SERUM 3.9 mmol/L (3.5-5.1); PROTEIN - SERUM 5.6 g/dL (6.4-8.2)
[2017-03-19 05:05] LABS: LYMPHOCYTES 5 % (15-50); MONOCYTES 5 % (2-11); NEUTROPHILS 89 % (40-80); PLATELET ESTIMATE NORMAL
[2017-03-19 07:52] VITALS: BP 158/88
[2017-03-19 11:33] VITALS: BP 165/69
[2017-03-19 14:35] LABS: APTT 39.5 SECONDS (22.8-39.4); INR 1.32 (0.85-1.17)
[2017-03-19 14:46] LABS: MAGNESIUM - SERUM 2.5 mg/dL (1.8-2.4)
[2017-03-19 14:47] LABS: PHOSPHOROUS 3.3 mg/dL (2.5-4.9)
[2017-03-19 15:36] VITALS: BP 150/71
[2017-03-19 20:25] LABS: PROTEIN - BODY FLUID 1.6 G/DL
[2017-03-19 21:44] VITALS: BP 159/72
[2017-03-19 21:50] LABS: MACROPHAGES BF 44 %; MESOTHELIALS BF 5 %; NEUT - BF 48 %
[2017-03-20 01:02] VITALS: BP 149/75
[2017-03-20 04:47] VITALS: BP 134/74
[2017-03-20 06:55] LABS: BASOPHILS 0.1 % (0-2); EOSINOPHILS 0.4 % (0-7); HEMOGLOBIN 10.3 g/dL (13.5-17.5); IMMATURE GRANULOCYTES 0.3 % (0-5); LYMPHOCYTES 4.3 % (15-50); MCH 31.2 pg (26.0-34.0); MCHC 31.2 g/dL (31.0-37.0); MEAN PLATELET VOLUME 11.1 fL (7.4-10.4); MONOCYTES 5.5 % (2-11); NEUTROPHILS 89.4 % (40-80); PLATELET COUNT 260 10x3/uL (130-400); RDW 14.7 % (11.5-14.5); WBC 16.4 10x3/uL (4.8-10.8)
[2017-03-20 07:13] LABS: ANION GAP 8.7 mmol/L (8-16); CALCIUM 8.5 mg/dL (8.5-10.1); CARBON DIOXIDE 30.5 mmol/L (21.0-32.0); CREATININE - SERUM 1.3 mg/dL (0.6-1.3); MAGNESIUM - SERUM 2.1 mg/dL (1.8-2.4); PHOSPHOROUS 3.1 mg/dL (2.5-4.9); POTASSIUM - SERUM 4.2 mmol/L (3.5-5.1); PROTEIN - SERUM 5.3 g/dL (6.4-8.2)
[2017-03-20 07:57] VITALS: BP 172/75
[2017-03-20 11:18] VITALS: BP 166/68
[2017-03-20 15:38] VITALS: BP 145/56
[2017-03-20 21:03] VITALS: BP 110/48
[2017-03-21 04:49] VITALS: BP 104/48
[2017-03-21 06:21] LABS: ANION GAP 8.7 mmol/L (8-16); CALCIUM 7.8 mg/dL (8.5-10.1); CARBON DIOXIDE 29.2 mmol/L (21.0-32.0); CREATININE - SERUM 1.4 mg/dL (0.6-1.3); MAGNESIUM - SERUM 1.8 mg/dL (1.8-2.4); PHOSPHOROUS 2.5 mg/dL (2.5-4.9); POTASSIUM - SERUM 3.9 mmol/L (3.5-5.1)
[2017-03-21 08:35] VITALS: BP 156/57
[2017-03-21 11:40] VITALS: BP 138/82
[2017-03-21 15:34] VITALS: BP 120/60
[2017-03-21 16:12] LABS: ACID FAST SMEAR Negative (()); AFB SPECIMEN PROCESSING Not Indicated (())
[2017-03-21 19:00] VITALS: BP 128/75
[2017-03-22 04:00] VITALS: BP 130/56
[2017-03-22 06:46] LABS: BASOPHILS 0.2 % (0-2); EOSINOPHILS 3.9 % (0-7); HEMATOCRIT 31.1 % (42.0-54.0); HEMOGLOBIN 9.8 g/dL (13.5-17.5); IMMATURE GRANULOCYTES 0.5 % (0-5); LYMPHOCYTES 5.8 % (15-50); MCH 30.9 pg (26.0-34.0); MCHC 31.5 g/dL (31.0-37.0); MCV 98.1 fL (80.0-100.0); MEAN PLATELET VOLUME 11.8 fL (7.4-10.4); MONOCYTES 6.8 % (2-11); NEUTROPHILS 82.8 % (40-80); PLATELET COUNT 260 10x3/uL (130-400); RBC 3.17 10x6/uL (4.20-6.10); RDW 14.5 % (11.5-14.5)
[2017-03-22 07:00] LABS: WBC 10.7 10x3/uL (4.8-10.8)
[2017-03-22 07:07] LABS: ALBUMIN 2.5 g/dL (3.4-5.0); ANION GAP 9.9 mmol/L (8-16); BILIRUBIN - TOTAL 0.3 mg/dL (0.2-1.3); CALCIUM 7.8 mg/dL (8.5-10.1); CREATININE - SERUM 1.5 mg/dL (0.6-1.3); MAGNESIUM - SERUM 1.7 mg/dL (1.8-2.4); PHOSPHOROUS 2.4 mg/dL (2.5-4.9); POTASSIUM - SERUM 3.9 mmol/L (3.5-5.1)
[2017-03-22 08:04] VITALS: BP 116/57
[2017-03-22 11:34] VITALS: BP 117/47
[2017-03-22 15:37] VITALS: BP 116/57
[2017-03-22 21:26] VITALS: BP 127/44
[2017-03-23 01:29] VITALS: BP 123/49
[2017-03-23 06:39] LABS: BASOPHILS 0.4 % (0-2); EOSINOPHILS 4.7 % (0-7); HEMATOCRIT 31.8 % (42.0-54.0); HEMOGLOBIN 9.9 g/dL (13.5-17.5); IMMATURE GRANULOCYTES 0.2 % (0-5); MCH 30.6 pg (26.0-34.0); MCHC 31.1 g/dL (31.0-37.0); MCV 98.1 fL (80.0-100.0); MEAN PLATELET VOLUME 11.7 fL (7.4-10.4); MONOCYTES 7.6 % (2-11); NEUTROPHILS 77.1 % (40-80); PLATELET COUNT 284 10x3/uL (130-400); RBC 3.24 10x6/uL (4.20-6.10); RDW 14.5 % (11.5-14.5); WBC 10.4 10x3/uL (4.8-10.8)
[2017-03-23 07:10] LABS: ANION GAP 8.6 mmol/L (8-16); CARBON DIOXIDE 28.7 mmol/L (21.0-32.0); CREATININE - SERUM 1.4 mg/dL (0.6-1.3); PHOSPHOROUS 2.5 mg/dL (2.5-4.9); POTASSIUM - SERUM 4.3 mmol/L (3.5-5.1)
[2017-03-23 07:58] VITALS: BP 124/51
[2017-03-23 11:24] VITALS: BP 121/52
[2017-03-23 15:35] VITALS: BP 115/45
[2017-03-23 21:27] VITALS: BP 110/50
[2017-03-24 01:46] VITALS: BP 111/45
[2017-03-24 05:40] VITALS: BP 136/49
[2017-03-24 06:36] LABS: BASOPHILS 0.2 % (0-2); EOSINOPHILS 4.1 % (0-7); HEMATOCRIT 30.6 % (42.0-54.0); HEMOGLOBIN 9.4 g/dL (13.5-17.5); IMMATURE GRANULOCYTES 0.1 % (0-5); LYMPHOCYTES 7.6 % (15-50); MCH 30.6 pg (26.0-34.0); MCHC 30.7 g/dL (31.0-37.0); MCV 99.7 fL (80.0-100.0); MEAN PLATELET VOLUME 11.7 fL (7.4-10.4); MONOCYTES 6.7 % (2-11); NEUTROPHILS 81.3 % (40-80); PLATELET COUNT 242 10x3/uL (130-400); RBC 3.07 10x6/uL (4.20-6.10); RDW 14.8 % (11.5-14.5); WBC 9.2 10x3/uL (4.8-10.8)
[2017-03-24 07:00] LABS: ANION GAP 9.5 mmol/L (8-16); CALCIUM 8.5 mg/dL (8.5-10.1); CARBON DIOXIDE 27.3 mmol/L (21.0-32.0); CREATININE - SERUM 1.3 mg/dL (0.6-1.3); MAGNESIUM - SERUM 2.4 mg/dL (1.8-2.4); POTASSIUM - SERUM 4.8 mmol/L (3.5-5.1)
[2017-03-24 07:01] LABS: PHOSPHOROUS 3.3 mg/dL (2.5-4.9)
[2017-03-24 08:10] VITALS: BP 139/55
[2017-03-24 11:12] LABS: FUNGUS STAIN Final report (())
[2017-03-24 11:23] VITALS: BP 132/50
[2017-03-24 15:31] VITALS: BP 138/52
[2017-03-24 19:00] VITALS: BP 139/51
[2017-03-25] VITALS (9 sets, daily range): BP systolic 109–156; BP diastolic 44–82
[2017-03-25 06:36] LABS: ANION GAP 10.3 mmol/L (8-16); CALCIUM 8.8 mg/dL (8.5-10.1); CARBON DIOXIDE 29.1 mmol/L (21.0-32.0); CREATININE - SERUM 1.4 mg/dL (0.6-1.3); MAGNESIUM - SERUM 2.3 mg/dL (1.8-2.4); POTASSIUM - SERUM 5.4 mmol/L (3.5-5.1)
[2017-03-25 06:44] LABS: PHOSPHOROUS 4.3 mg/dL (2.5-4.9)
[2017-03-25 18:44] LABS: BASOPHILS 0.2 % (0-2); EOSINOPHILS 1.1 % (0-7); HEMATOCRIT 34.8 % (42.0-54.0); HEMOGLOBIN 10.6 g/dL (13.5-17.5); IMMATURE GRANULOCYTES 0.5 % (0-5); MCH 31.3 pg (26.0-34.0); MCHC 30.5 g/dL (31.0-37.0); MEAN PLATELET VOLUME 11.7 fL (7.4-10.4); NEUTROPHILS 84.2 % (40-80); PLATELET COUNT 247 10x3/uL (130-400); RBC 3.39 10x6/uL (4.20-6.10); RDW 15.1 % (11.5-14.5)
[2017-03-25 18:46] LABS: MCV 102.7 fL (80.0-100.0); WBC 13.2 10x3/uL (4.8-10.8)
[2017-03-25 19:00] LABS: ALBUMIN 3.4 g/dL (3.4-5.0); ANION GAP 11.1 mmol/L (8-16); BILIRUBIN - TOTAL 0.23 mg/dL (0.2-1.3); CALCIUM 8.5 mg/dL (8.5-10.1); CARBON DIOXIDE 25.9 mmol/L (21.0-32.0); CREATININE - SERUM 1.4 mg/dL (0.6-1.3); MAGNESIUM - SERUM 2.3 mg/dL (1.8-2.4); PHOSPHOROUS 4.7 mg/dL (2.5-4.9); PROTEIN - SERUM 5.7 g/dL (6.4-8.2)
[2017-03-25 22:20] LABS: APPEARANCE HAZY (CLEAR); BILIRUBIN NEGATIVE (NEGATIVE); COLOR YELLOW (YELLOW); GLUCOSE NEGATIVE (NEGATIVE); KETONE NEGATIVE (NEGATIVE); NITRITE NEGATIVE (NEGATIVE); PROTEIN TRACE mg/dL (NEGATIVE); UROBILINOGEN NORMAL (NORMAL)
[2017-03-25 22:21] LABS: BACTERIA MANY /hpf (NONE SEEN); RED CELLS - URINE 25-50 /hpf (0-5)
[2017-03-26] VITALS (20 sets, daily range): BP systolic 111–151; BP diastolic 53–92
[2017-03-26 06:56] LABS: BASOPHILS 0.2 % (0-2); EOSINOPHILS 1.6 % (0-7); HEMOGLOBIN 9.4 g/dL (13.5-17.5); IMMATURE GRANULOCYTES 0.2 % (0-5); MCH 31.1 pg (26.0-34.0); MCHC 31.3 g/dL (31.0-37.0); MEAN PLATELET VOLUME 11.3 fL (7.4-10.4); PLATELET COUNT 216 10x3/uL (130-400); RBC 3.02 10x6/uL (4.20-6.10); RDW 14.7 % (11.5-14.5)
[2017-03-26 07:18] LABS: MCV 99.3 fL (80.0-100.0); WBC 9.8 10x3/uL (4.8-10.8)
[2017-03-26 07:32] LABS: ALBUMIN 2.9 g/dL (3.4-5.0); BILIRUBIN - TOTAL 0.39 mg/dL (0.2-1.3); CALCIUM 8.7 mg/dL (8.5-10.1); CARBON DIOXIDE 29.7 mmol/L (21.0-32.0); CREATININE - SERUM 1.5 mg/dL (0.6-1.3); POTASSIUM - SERUM 5.7 mmol/L (3.5-5.1); PROTEIN - SERUM 5.3 g/dL (6.4-8.2)
[2017-03-26 09:53] LABS: MAGNESIUM - SERUM 2.2 mg/dL (1.8-2.4)
[2017-03-26 09:56] LABS: PHOSPHOROUS 3.2 mg/dL (2.5-4.9)
[2017-03-27] VITALS (45 sets, daily range): BP systolic 89–171; BP diastolic 31–91
[2017-03-27 05:23] LABS: BASOPHILS 0.3 % (0-2); EOSINOPHILS 2.3 % (0-7); HEMATOCRIT 30.1 % (42.0-54.0); HEMOGLOBIN 9.4 g/dL (13.5-17.5); IMMATURE GRANULOCYTES 0.2 % (0-5); LYMPHOCYTES 5.2 % (15-50); MCH 30.3 pg (26.0-34.0); MCHC 31.2 g/dL (31.0-37.0); MEAN PLATELET VOLUME 12.4 fL (7.4-10.4); MONOCYTES 7.5 % (2-11); NEUTROPHILS 84.5 % (40-80); PLATELET COUNT 220 10x3/uL (130-400); RDW 14.5 % (11.5-14.5); WBC 9.5 10x3/uL (4.8-10.8)
[2017-03-27 05:30] LABS: MCV 97.1 fL (80.0-100.0)
[2017-03-27 05:48] LABS: ALBUMIN 3.1 g/dL (3.4-5.0); ANION GAP 9.8 mmol/L (8-16); BILIRUBIN - TOTAL 0.5 mg/dL (0.2-1.3); CALCIUM 8.8 mg/dL (8.5-10.1); CREATININE - SERUM 1.5 mg/dL (0.6-1.3); PROTEIN - SERUM 5.6 g/dL (6.4-8.2)
[2017-03-27 05:54] LABS: POTASSIUM - SERUM 4.8 mmol/L (3.5-5.1)
[2017-03-27 08:27] LABS: PHOSPHOROUS 3.3 mg/dL (2.5-4.9)
[2017-03-28] VITALS (20 sets, daily range): BP systolic 90–141; BP diastolic 40–88
[2017-03-28 04:00] LABS: BASOPHILS 0.2 % (0-2); EOSINOPHILS 0.3 % (0-7); HEMATOCRIT 29.6 % (42.0-54.0); HEMOGLOBIN 9.1 g/dL (13.5-17.5); IMMATURE GRANULOCYTES 0.3 % (0-5); LYMPHOCYTES 2.7 % (15-50); MCH 29.8 pg (26.0-34.0); MCHC 30.7 g/dL (31.0-37.0); MEAN PLATELET VOLUME 11.8 fL (7.4-10.4); NEUTROPHILS 90.5 % (40-80); RBC 3.05 10x6/uL (4.20-6.10); RDW 14.5 % (11.5-14.5); WBC 10.9 10x3/uL (4.8-10.8)
[2017-03-28 04:04] LABS: PLATELET COUNT 160 10x3/uL (130-400)
[2017-03-28 04:25] LABS: ALBUMIN 2.8 g/dL (3.4-5.0); ANION GAP 9.9 mmol/L (8-16); BILIRUBIN - TOTAL 0.7 mg/dL (0.2-1.3); CALCIUM 8.4 mg/dL (8.5-10.1); CREATININE - SERUM 1.8 mg/dL (0.6-1.3); POTASSIUM - SERUM 4.9 mmol/L (3.5-5.1); PROTEIN - SERUM 5.4 g/dL (6.4-8.2); VANCOMYCIN - RANDOM 20.8 ug/mL (10.0-20.0)
[2017-03-28 08:14] LABS: MAGNESIUM - SERUM 2.2 mg/dL (1.8-2.4); PHOSPHOROUS 3.8 mg/dL (2.5-4.9)
[2017-03-29] MEDS ORDERED: MORPHINE P30 MG/30 M IV (06:14)
[2017-03-29] MEDS ORDERED: ATIVAN2 MG/ML IV (06:15)
[2017-03-29] MEDS ORDERED: TRANSDERM-SCO1 PATCH TRANSDERM (06:17)
[2017-03-29] MEDS ORDERED: ISOPTO ATROPINE5 ML SL (06:21)
[2017-04-17 09:18] LABS: FUNGUS MYCOLOGY CULTURE Final report (())
== END 2017-03-28 18:47 | disposition hospice, inpatient (51) | DRG 388 ==
LOC: D.ER 01:58 → D.ICU 04:40 → D.M2 04:40 → D.ICU 15:33 → D.MS 03-15 13:20 → D.M2 03-16 18:58 → D.ICU 03-25 18:59
PROVIDERS: Family Medicine; General Practice; Internal Medicine Nephrology; Internal Medicine Pulmonary Disease; Surgery
PROC: 0D9670Z Drainage of Stomach with Drainage Device, Via Natural or Artificial Opening (ICD-10-PCS; 2017-03-09)
PROC: 02HV33Z Insertion of Infusion Device into Superior Vena Cava, Percutaneous Approach (ICD-10-PCS; 2017-03-11)
PROC: B548ZZA Ultrasonography of Superior Vena Cava, Guidance (ICD-10-PCS; 2017-03-11)
PROC: 02HV33Z Insertion of Infusion Device into Superior Vena Cava, Percutaneous Approach (ICD-10-PCS; 2017-03-12)
PROC: B548ZZA Ultrasonography of Superior Vena Cava, Guidance (ICD-10-PCS; 2017-03-12)
PROC: 0W9930Z Drainage of Right Pleural Cavity with Drainage Device, Percutaneous Approach (ICD-10-PCS; principal; 2017-03-19 17:00)
PROC: 5A09457 Assistance with Respiratory Ventilation, 24-96 Consecutive Hours, Continuous Positive Airway Pressure (ICD-10-PCS; 2017-03-25)
PROC: 0D9670Z Drainage of Stomach with Drainage Device, Via Natural or Artificial Opening (ICD-10-PCS; 2017-03-27)
DX: K56.609 Unspecified intestinal obstruction, unspecified as to partial versus complete obstruction (principal); J96.01 Acute respiratory failure with hypoxia; J96.02 Acute respiratory failure with hypercapnia; J18.9 Pneumonia, unspecified organism; I50.31 Acute diastolic (congestive) heart failure; I42.9 Cardiomyopathy, unspecified; E87.2 Acidosis; C34.31 Malignant neoplasm of lower lobe, right bronchus or lung; N17.9 Acute kidney failure, unspecified; J90 Pleural effusion, not elsewhere classified; E87.0 Hyperosmolality and hypernatremia; K56.7 Ileus, unspecified; Z66 Do not resuscitate; D64.9 Anemia, unspecified; I95.9 Hypotension, unspecified; J44.9 Chronic obstructive pulmonary disease, unspecified; I10 Essential (primary) hypertension; E87.5 Hyperkalemia; E86.0 Dehydration; Z87.891 Personal history of nicotine dependence; D69.6 Thrombocytopenia, unspecified; N18.9 Chronic kidney disease, unspecified; I16.0 Hypertensive urgency

== ENCOUNTER 2017-03-28 18:06 | Inpatient (IN) | payer OTHER ==
[~2017-03-28] VITALS: Ht 177.8 cm; Wt 87.3 kg
[~2017-03-28 18:06] MED LIST changes: +HYDROCODON-ACE1 EAC7 PO
[2017-03-29] VITALS: BP 122/45
[2017-03-29 00:31] VITALS: BP 122/45; BMI 14.3; BMI 27.6
[2017-03-29] MEDS ORDERED: MORPHINE P30 MG/30 M IV (06:14)
[2017-03-29] MEDS ORDERED: ATIVAN2 MG/ML IV (06:15)
[2017-03-29] MEDS ORDERED: TRANSDERM-SCO1 PATCH TRANSDERM (06:17)
[2017-03-29] MEDS ORDERED: ISOPTO ATROPINE5 ML SL (06:21)
[2017-03-29 14:10] VITALS: Ht 177.8 cm; Wt 87.3 kg
== END 2017-03-29 10:20 | DRG 951 ==
LOC: D.ICU 18:06 → D.MS 20:05
DX: Z51.5 Encounter for palliative care (principal)